=== PATIENT | male | born 1970 | race Caucasian/White ===

== ENCOUNTER 2023-04-23 07:34 | Emergency (ER) | payer BC, SELFPAY ==
[2023-04-23] VITALS (7 sets, daily range): BP systolic 146–182; BP diastolic 97–110; BMI 28.1
--- NOTE | 2023-04-23 08:23 | ED.GENMED ---
History of Present Illness
General
Chief Complaint: Chest Pain
Source: patient and spouse
Exam Limitations: none
Time Seen by Provider: 04/23/23 08:07
Nursing documentation reviewed up to this point in time: agreed with
Travel History
Have you had any contact with someone who has COVID-19?: No
Do you have any symptoms of coronavirus? Fever > 100 degrees, chills, cough, shortness of breath, sore throat, loss of taste or smell, muscle aches, or headache?: No
History of Present Illness
History of Present Illness:
52-year-old male with no chronic medical issues presents to the emergency room with his spouse for evaluation of chest discomfort, left arm and leg discomfort and high blood pressure. Patient reports that yesterday he started to feel slightly
unwell�he notes that when he was walking his dog yesterday he felt flushed and could hear 'my heart beating in my ears.' He says that he has had mildly elevated blood pressure for quite some time but has not been started on medication; he thought
that perhaps the symptoms could be due too high blood pressure and so he was checking his blood pressure throughout the evening and he noted that it was significantly elevated to the 180s systolic. He says that he went to bed and in the middle of
the night he noticed that he was starting to have some pressure in his chest that she describes a left-sided pressure that does not radiate and has been consistent since then although it seems to be generally improving. He says that he also noticed
a 'tightness' in his left arm and his left leg�'like an Jamin bandage wrapped around my arm and my thigh.' He says that the symptoms have been consistent since onset at around 2 to 3 AM. He denies any shortness of breath. He denies any nausea,
vomiting, diaphoresis. Denies any abdominal pain. No recent illness�no sore throat, runny nose, cough, fevers, chills. Has not noted any swelling in his leg. He denies any known cardiac history. He notes that he is quite active and is currently
training for half marathon runs about 6 miles a day. He denies ever having any exertional chest pains.
Past History
Past History
ED Past Medical History: GERD
ED Past Surgical History: Other (vasectomy)
Social History
Tobacco: Non-smoker
Alcohol: None
Drug: None
Personal:
Living: with family
Employment: Employed
Family History
Family History: CAD; Negative Early CAD or Sudden
Review of Systems
Review of Systems
All Other Systems: ROS reviewed and negative except as documented in HPI and ROS
Constitutional: Denies fever or chills
EENT: Denies sore throat or runny nose
Respiratory: Denies cough or trouble breathing
Cardiac: Reports chest pain; Denies diaphoresis or palpitations
ABD/GI: Denies abdominal pain, nausea, vomiting or diarrhea
: Denies flank pain
Musculoskeletal: Denies neck pain or back pain
Neurological: Denies dizzy, headache, weakness or numbness
Phy Exam
Physical Exam
Physical Exam:
General: Awake, alert, oriented x3; no acute distress
Head: Normocephalic, atraumatic
Eyes: Conjunctiva normal, sclera anicteric
Throat: Airway intact, handling secretions
Neck: Trachea midline, supple without meningismus
Lungs: Clear to auscultation bilaterally, no wheezing, rales, rhonchi
Heart: Regular rate and rhythm, no murmurs, gallops, or rubs
Abd: Soft, non distended, nontender
Neuro: Cranial nerves grossly intact, speech fluid
Skin: no rash
Extremities: No edema in extremities, equal pulses in all extremities�specifically he has strong, palpable, and symmetric radial pulses, femoral pulses, DP and PT pulses bilaterally
Scores
Heart Failure Risk
Heart Failure Risk Score: Not Applicable
Heart Score for Chest Pain Patients
STEMI patient?: No
History: Slightly or Non-Suspicious
ECG: Normal
Age: >45 - <65 years
Risk Factors: No Risk Factors
Troponin: </= Normal Limit
Heart Score for Chest Pain Patients: 1
Heart Score Risk: 2.5% MACE over next 6 weeks
PE Wells Score
Symptoms of DVT: Yes (Heaviness in the arm and the leg)
No alternative diagnosis better explains the illness: No
Tachycardia with pulse > 100: No
Immobilization (>=3 days) or surgery within previous 4 weeks: No
Prior history of DVT or pulmonary embolism: No
Presence of hemoptysis: No
Presence of malignancy: No
Pulmonary Embolism Risk Score: 0
Probability of PE: Pt is low risk
Withdrawal Assessment of Alcohol
Withdrawal Assessment Completed?: Not applicable
Course
Orders/Labs/Results
Orders:
Orders
04/23/23 07:39
Electrocardiogram (*1) Urgent
Reason for Study: Chest Pain
EKG- Treatment ONCE
04/23/23 08:03
CMP [Comprehensive Metabolic Panel] Urgent
Complete Blood Count/With Diff Urgent
Troponin I Urgent
04/23/23 08:07
CR Chest - 2 Views Urgent
Comment:
Reason For Exam: cp
04/23/23 08:16
D-Dimer Urgent
04/23/23 09:00
Vital Signs- Treatment ONCE
Frequency: Hourly
04/23/23 11:05
Troponin I Urgent
Abnormal Lab Results
04/23/23
08:03
Chloride 108 H mmol/L
(98-107)
04/23/23 08:03
04/23/23 08:03
Vital Signs
Blood pressure: 159/105
Initial and Last Documented VS:
Initial Vital Signs
Temp Pulse Resp BP Pulse Ox
36.6 C 73 18 181/110 98
04/23/23 07:36 04/23/23 07:36 04/23/23 07:36 04/23/23 07:36 04/23/23 07:36
Last Documented Vital Signs
Temp Pulse Resp BP Pulse Ox
36.6 C 60 16 151/105 96
04/23/23 07:36 04/23/23 12:00 04/23/23 12:00 04/23/23 12:00 04/23/23 12:00
MDM/Problems Addressed
Differential Diagnosis Includes:
ACS/acute IL, PE, pneumothorax, pneumonia, anxiety; aortic dissection a consideration with associated hypertension but considered much less likely given gradual onset and clinical appearance on exam today
MDM/Problems Addressed:
52-year-old male presents for evaluation of chest discomfort and left arm and leg tightness in the setting of hypertension since yesterday. He did arrive to his hypertensive 210/110, blood pressure improving by my assessment to 159/105. Vital
signs otherwise within normal limits. Physical exam as above. EKG reviewed shows no STEMI. History sounds very atypical for ACS�although there is some radiation/associated arm pain there is actually no exertional component and he is quite active
run 6 miles a day without exertional symptoms. Plan to place an IV check labs including CBC and CMP, troponin, D-dimer. Will check a chest x-ray. Will hold on additional antihypertensive therapy at present in favor of monitoring as it has dropped
significantly since triage. Monitor on telemetry reassess after the above.
Initial labs reviewed: CBC unremarkable, CMP shows no clinically significant abnormalities. D-dimer is negative. Troponin undetectable x 1�repeat pending. Chest x-ray reviewed by me shows no acute pathology. Continue to monitor pending repeat
troponin. Vitals have remained stable--blood pressure improved from triage but still lingering in the mildly hypertensive range.
Repeat troponin negative. Chest pain essentially resolved and patient very well-appearing. Blood pressure greatly improved but still mildly hypertensive 149 over 90s on my reassessment. It sounds like he has been in the 150s for quite some time
and despite exercise remains mildly hypertensive. Will start on a very low-dose antihypertensive here and have him follow-up with his primary doctor for reassessment. I think he is stable for discharge at this point in time can follow-up as an
outpatient as above. He feels very comfortable with this. Spoke about return precautions all questions answered.
Acute Exacerbation and/or Progression of Chronic Illness:
Acutely hypertensive managed as above
Acute Exacerbation and/or Progression of Chronic Illness: HTN
*Radiology
Radiology exam reviewed: preliminary read by ED provider and radiology read reviewed
*Pulse Oximetry
Patient hypoxic: no
*EKG
Interpreted by ED Provider?: Yes
Heart Rate: 64
Rate: normal
Rhythm: sinus
Ida: normal axis
Interval: normal interval
QRS Pattern: normal QRS
Ischemia: no ischemia
*Critical Care Note
Total Time (30-74mins, 75-104mins- exclusive of procedures): Not Applicable
Data Reviewed
Review of Other/Old Records Reveals: Labs and Records
Source: patient and spouse
ED Attending Note
-
Portions of this chart may have been created with voice recognition software.� Occasional wrong word or��sound alike� substitutions may have occurred due to the inherent limitations of voice recognition software.
Discharge Plan
Departure
Patient Disposition: Home (Routine Discharge)
Date of Disposition: 04/23/23
Time of Disposition: 12:23
Patient with high blood pressure during this ER visit?: Yes
Discharge Problem:
Hypertension, Chest pain
Instructions: Chest Pain PCP Follow Up
Prescriptions:
New
lisinopril 2.5 mg tablet
2.5 mg PO DAILY Qty: 30 0RF
Referrals:
Aureliano Pino MD [Family Provider] - Call in 1-3 days for appt
Activity Restrictions/Additional Instructions:
Thank you for visiting the Emergency Department at [facility].
1. Please schedule a follow up appointment as directed. Call first thing tomorrow morning to make an appointment.
2. If indicated, please take your medications as instructed and indicated on discharge paperwork.
3. If any of your symptoms do not improve, or persist, or become more severe within 6-12 hours, please return to the emergency department for further care.
4. Please return to the emergency department if you develop a headache, neck pain/stiffness, fever greater than 100.4F, chest pain, shortness of breath, persistent nausea, vomiting, slurred speech, difficulty walking, numbness/tingling, weakness,
signs of infection or any other symptoms that are worrisome to you.
Please call [phone] if you have any questions.
Interventions
Interventions:
*Risk Screen - Suicide Last Done: 04/23/23 07:36
*General Assessment Last Done: 04/23/23 07:36
*Neglect/Abuse Screening Last Done: 04/23/23 07:36
ED- Fall Risk Assessment Last Done: 04/23/23 08:00
*ED COVID-19 Vaccine History Last Done: 04/23/23 08:00
ED- Cardiac Assessment Last Done: 04/23/23 08:07
[2023-04-23 08:26] LABS: % Eosinophils 1.9 % (0-6); % Immature Granulocytes 0.2 % (0-0.5); % Lymphocytes 27.9 % (20.5-51.1); % Monocytes 7.6 % (1.7-9.3); % Neutrophils 61.4 % (42.2-75.2); Absolute Basophils 0.1 10^3/uL (0-0.2); Absolute Eosinophils 0.1 10^3/uL (0-0.7); Absolute Lymphocytes 1.4 10^3/uL (1.2-3.4); Absolute Monocytes 0.4 10^3/uL (0.1-0.6); Absolute Neutrophils 3.2 10^3/uL (1.4-6.5); Hematocrit 45.4 % (39.0-52.0); Hemoglobin 15.9 g/dL (13.0-18.0); Mean Corpuscular Hgb 28.1 pg (27.0-31.0); Mean Corpuscular Volume 80.4 fL (80.0-94.0); Mean Platelet Volume 9.3 fL (7.4-10.4); Nucleated Red Blood Cells % 0 % (-); Platelet Count 276 10^3/uL (130-400); Red Blood Cell Count 5.65 10^6/uL (4.70-6.10); Red Cell Dist. Width 13.3 % (11.5-14.5); White Blood Cell Count 5.2 10^3/uL (4.8-10.8)
[2023-04-23 08:38] LABS: ALT (SGPT) 35 U/L (0-50); AST (SGOT) 36 U/L (17-59); Albumin 4.3 g/dl (3.5-5.0); Alkaline Phosphatase 73 U/L (38-126); Blood Urea Nitrogen 17 mg/dl (9-20); Calcium 9.2 mg/dl (8.4-10.2); Carbon Dioxide 23 mmol/L (22-30); Chloride 108 mmol/L (98-107); Estimated Creatinine Clearance 120 ml/min; Glucose 99 mg/dl (70-99); Sodium 138 mmol/L (135-145); Total Protein 7.1 g/dl (6.3-8.2); eGFR > 60.00
[2023-04-23 08:49] LABS: Troponin I < 0.012 ng/ml
[2023-04-23 08:50] LABS: Potassium 4.2 mmol/L (3.5-5.1)
[2023-04-23 08:58] LABS: D-Dimer 0.28 ug/mlFEU (0.00-0.50)
[2023-04-23 11:41] LABS: Troponin I < 0.012 ng/ml
== END 2023-04-23 13:00 | disposition home or self-care (01) ==
LOC: EMR 07:34
PROVIDERS: EMERGENCY PHYSICIAN Emergency Medicine; FAMILY PHYSICIAN Family Medicine
DX: R07.89 Other chest pain (principal); I10 Essential (primary) hypertension
CPT/HCPCS: 99285; 71046; 80053; 84484; 85025; 85379; 93005

== ENCOUNTER → 2023-11-01 14:43 | Outpatient (REF) | payer BC, SELFPAY | LOC: RAD 14:43 | PROVIDERS: ATTENDING PHYSICIAN Physician Assistant Surgical; FAMILY PHYSICIAN Family Medicine | DX: M79.662 Pain in left lower leg (principal); M84.362D Stress fracture, left tibia, subsequent encounter for fracture with routine healing | CPT/HCPCS: 93971 ==

== ENCOUNTER 2023-11-01 16:09 | Emergency (ER) | payer BC, SELFPAY ==
[2023-11-01 16:10] VITALS: BP 142/102
--- NOTE | 2023-11-01 17:20 | ED.GENMED ---
History of Present Illness
General
Chief Complaint: DVT/Possible Blood Clot
Source: patient and spouse
Exam Limitations: none
Time Seen by Provider: 11/01/23 17:08
Nursing documentation reviewed up to this point in time: agreed with
History of Present Illness
History of Present Illness:
52-year-old male with a past medical history of hypertension presents to the emergency room from outpatient radiology due to a DVT. Patient reports that he had a stress fracture in his left leg after a marathon in June. He was treated at [place]
[facility] orthopedics with Ortho boot left lower extremity x 3 weeks; this was removed in early July. He says that since the boot came off he has had consistent swelling in the left leg and pain despite signs of well-healing fracture on repeat MRI.
Ultimately orthopedist sent for an ultrasound to rule out DVT today which was positive. He denies any chest pain or shortness of breath. He denies any other complaints. Denies any known history of DVT/PE or known family history of such. He
denies being on any blood thinners, only medications are blood pressure medications.
Past History
Past History
ED Past Medical History: GERD
ED Past Surgical History: Other (vasectomy)
Social History
Tobacco: Non-smoker
Alcohol: None
Drug: None
Personal:
Living: with family
Employment: Employed
Family History
Family History: CAD; Negative Early CAD or Sudden
Review of Systems
Review of Systems
All Other Systems: ROS reviewed and negative except as documented in HPI and ROS
Constitutional: Denies fever
Respiratory: Denies trouble breathing
Cardiac: Denies chest pain
: Denies bleeding
Musculoskeletal: Reports muscle pain and edema
Neurological: Denies headache
Phy Exam
Physical Exam
Physical Exam:
General: Awake, alert, oriented x3; no acute distress
Head: Normocephalic, atraumatic
Eyes: Conjunctiva normal
Throat: Airway intact, handling secretions
Neck: Trachea midline
Lungs: Clear to auscultation bilaterally, no wheezing, rales, rhonchi
Heart: Regular rate and rhythm, no murmurs, gallops, or rubs
Neuro: No gross deficits
Skin: no rash, no erythema or discoloration of the left lower extremity
Extremities: Patient has +1 edema left lower extremity compared to right; no significant discoloration to left lower extremity; mild calf tenderness on the left but no palpable cords; he has good strong pulses femoral, popliteal, DP/PT left lower
extremity
Scores
Heart Failure Risk
Heart Failure Risk Score: Not Applicable
Heart Score for Chest Pain Patients
STEMI patient?: Not applicable
Withdrawal Assessment of Alcohol
Withdrawal Assessment Completed?: Not applicable
Course
Orders/Labs/Results
Orders:
Orders
11/01/23 17:08
Complete Blood Count/With Diff Urgent
Comprehensive Metabolic Panel Urgent
Vital Signs
Initial and Last Documented VS:
Initial Vital Signs
Temp Pulse Resp BP Pulse Ox
36.7 C 64 18 142/102 97
11/01/23 16:10 11/01/23 16:10 11/01/23 16:10 11/01/23 16:10 11/01/23 16:10
Last Documented Vital Signs
Temp Pulse Resp BP Pulse Ox
36.7 C 64 18 142/102 97
11/01/23 16:10 11/01/23 16:10 11/01/23 16:10 11/01/23 16:10 11/01/23 16:10
MDM/Problems Addressed
Differential Diagnosis Includes:
DVT
MDM/Problems Addressed:
52-year-old male presents for evaluation of DVT on outpatient ultrasound�likely triggered by immobilization for stress fracture in June/July. Denies any chest pain or shortness of breath�no symptoms of PE. Vital signs are normal. Ultrasound
reviewed�shows occlusive DVT proximal to mid femoral vein with nonocclusive thrombus in the distal femoral vein. Will check basic screening labs CBC and CMP. Discussed case with vascular surgery regarding possibility of thrombectomy or lysis�based
on extent of clot no indication for these interventions at this point in time. Recommended initiating anticoagulation, can follow-up as an outpatient.
*Radiology
Radiology exam reviewed: radiology read reviewed
*Pulse Oximetry
Patient hypoxic: no
*Critical Care Note
Total Time (30-74mins, 75-104mins- exclusive of procedures): Not Applicable
Data Reviewed
Source: patient and spouse
ED Attending Note
-
Portions of this chart may have been created with voice recognition software.� Occasional wrong word or��sound alike� substitutions may have occurred due to the inherent limitations of voice recognition software.
Discharge Plan
Departure
Prescriptions:
No Action
lisinopril 2.5 mg tablet
2.5 mg PO DAILY Qty: 30 0RF
Referrals:
Aureliano Pino MD [Family Provider] -
Interventions
Interventions:
*Risk Screen - Suicide Last Done: 11/01/23 16:10
*General Assessment Last Done: 11/01/23 16:10
*Neglect/Abuse Screening Last Done: 11/01/23 16:10
Discharge Date and Time
Print Language: MONGOLIAN
--- NOTE | 2023-11-01 17:36 | CM ---
CM spoke with patient's pharmacy and confirmed Eliquis is covered at $30. CM updated ED physician.
[2023-11-01 17:50] LABS: % Basophils 1.1 % (0-2); % Eosinophils 1.4 % (0-6); % Immature Granulocytes 0.3 % (0-0.5); % Lymphocytes 29.2 % (20.5-51.1); % Monocytes 8.7 % (1.7-9.3); % Neutrophils 59.3 % (42.2-75.2); Absolute Basophils 0.1 10^3/uL (0-0.2); Absolute Eosinophils 0.1 10^3/uL (0-0.7); Absolute Lymphocytes 1.9 10^3/uL (1.2-3.4); Absolute Monocytes 0.6 10^3/uL (0.1-0.6); Hematocrit 42.5 % (39.0-52.0); Hemoglobin 14.9 g/dL (13.0-18.0); Mean Corp Hgb Conc. 35.1 g/dL (33.0-37.0); Mean Corpuscular Hgb 28.4 pg (27.0-31.0); Mean Corpuscular Volume 81.1 fL (80.0-94.0); Nucleated Red Blood Cells % 0 % (-); Platelet Count 251 10^3/uL (130-400); Red Blood Cell Count 5.24 10^6/uL (4.70-6.10); Red Cell Dist. Width 13.2 % (11.5-14.5); White Blood Cell Count 6.7 10^3/uL (4.8-10.8)
[2023-11-01] MEDS: ELIQUIS 10 MG PO (17:57)
[2023-11-01 18:05] LABS: ALT (SGPT) 41 U/L (0-50); AST (SGOT) 32 U/L (17-59); Albumin 4.5 g/dl (3.5-5.0); Alkaline Phosphatase 54 U/L (38-126); Blood Urea Nitrogen 15 mg/dl (9-20); Calcium 9.6 mg/dl (8.4-10.2); Carbon Dioxide 24 mmol/L (22-30); Chloride 103 mmol/L (98-107); Glucose 95 mg/dl (70-99); Potassium 4.1 mmol/L (3.5-5.1); Sodium 141 mmol/L (135-145); Total Bilirubin 0.6 mg/dl (0.2-1.3); Total Protein 7.3 g/dl (6.3-8.2); eGFR > 60.00
== END 2023-11-01 18:00 | disposition home or self-care (01) ==
LOC: EMR 16:09
PROVIDERS: EMERGENCY PHYSICIAN Emergency Medicine; FAMILY PHYSICIAN Family Medicine
DX: I82.412 Acute embolism and thrombosis of left femoral vein (principal); K21.9 Gastro-esophageal reflux disease without esophagitis; Z88.0 Allergy status to penicillin; Z91.018 Allergy to other foods
CPT/HCPCS: 99283; 80053; 85025; 93971

== ENCOUNTER → 2024-04-13 08:53 | Outpatient (REF) | payer BC, SELFPAY | LOC: HWRAD 08:53 | PROVIDERS: ATTENDING PHYSICIAN Family Medicine; REFERRING PHYSICIAN Specialist | DX: M84.362G Stress fracture, left tibia, subsequent encounter for fracture with delayed healing (principal); M84.361G Stress fracture, right tibia, subsequent encounter for fracture with delayed healing; M80.00XG Age-related osteoporosis with current pathological fracture, unspecified site, subsequent encounter for fracture with delayed healing | CPT/HCPCS: 77080 ==

== ENCOUNTER 2024-04-28 06:14 | Day surgery (SDC) | payer BC, SELFPAY ==
[2024-04-14 14:08] VITALS: BMI 29.4
[2024-04-28] VITALS (8 sets, daily range): BP systolic 132–149; BP diastolic 82–99; BMI 29.4
[2024-04-28] MEDS: TYLENOL 1000 MG PO (13:39)
[2024-04-28] MEDS: CELEBREX 200 MG PO (13:39)
[2024-04-28] MEDS: NORMOSOL-R/PLASMALYTE-A 1000 IV (13:39)
[2024-04-28] MEDS: TRANSDERM-SCOP 1 PATCH TRANSDERM (15:04)
== END 2024-04-28 18:37 | disposition home or self-care (01) ==
LOC: SDS 06:14
PROVIDERS: ATTENDING PHYSICIAN Specialist; FAMILY PHYSICIAN Family Medicine
DX: S83.232A Complex tear of medial meniscus, current injury, left knee, initial encounter (principal); X58.XXXA Exposure to other specified factors, initial encounter; M84.362A Stress fracture, left tibia, initial encounter for fracture; M22.42 Chondromalacia patellae, left knee
CPT/HCPCS: 0707T; 29881; C1713; 36415; 73560; 76000; 93005

== ENCOUNTER 2024-05-03 09:40 | Emergency (ER) | payer BC, SELFPAY ==
[2024-05-03 09:42] VITALS: BP 141/104
[2024-05-03 10:21] LABS: COVID-19 Antigen Positive (Negative)
--- NOTE | 2024-05-03 10:55 | ED.GENMED ---
History of Present Illness
General
Chief Complaint: Cold/Flu/URI Symptoms
Time Seen by Provider: 05/03/24 10:11
History of Present Illness
History of Present Illness:
53-year-old male presents the emergency department for evaluation legs, cough, and sore throat for the past 2 days. He is 5 days status post left meniscectomy performed by [facility] orthopedics. Low-grade fever this morning. No ill contacts at
home.
Past History
Past History
ED Past Medical History: GERD
ED Past Surgical History: Other (vasectomy)
Social History
Tobacco: Non-smoker
Alcohol: None
Drug: None
Personal:
Living: with family
Employment: Employed
Family History
Family History: CAD; Negative Early CAD or Sudden
Review of Systems
Review of Systems
Allergies reviewed?: Yes
All Other Systems: ROS reviewed and negative except as documented in HPI and ROS
Phy Exam
Physical Exam
Physical Exam:
GEN: Well appearing, NAD, WDWN
HEENT: Oral mucosa moist, no scleral icterus, TMs clear bilaterally, mild oropharyngeal erythema
Cardiac: Regular rate and rhythm, no murmurs
Lung: No respiratory distress, no tachypnea, lungs clear to auscultation bilaterally
MSK: No gross deformity or injuries
Skin: Good color, no pallor or jaundice, no rashes
Neuro: AO x3, moves all extremities freely
Psych: Calm, cooperative
Course
Orders/Labs/Results
Orders:
Orders
05/03/24 09:47
COVID-19 Antigen Urgent
Source: Nasal Swab
Influenza A+B Rapid Molecular Urgent
ROSALIE Source: Nasal Swab
Specimen Description:
Abnormal Lab Results
05/03/24
09:47
SARS-CoV-2 Antigen Positive A
(Negative)
Vital Signs
Initial and Last Documented VS:
Initial Vital Signs
Temp Pulse Resp BP Pulse Ox
99.9 F 103 20 141/104 98
05/03/24 09:42 05/03/24 09:42 05/03/24 09:42 05/03/24 09:42 05/03/24 09:42
Last Documented Vital Signs
Temp Pulse Resp BP Pulse Ox
99.9 F 103 20 141/104 98
05/03/24 09:42 05/03/24 09:42 05/03/24 09:42 05/03/24 09:42 05/03/24 09:42
MDM/Problems Addressed
MDM/Problems Addressed:
Patient positive for COVID-19, discussed supportive care, patient is interested in antiviral therapy which is reasonable given his history of hypertension
*Critical Care Note
Total Time (30-74mins, 75-104mins- exclusive of procedures): Not Applicable
ED Attending Note
-
Portions of this chart may have been created with voice recognition software.� Occasional wrong word or��sound alike� substitutions may have occurred due to the inherent limitations of voice recognition software.
Discharge Plan
Departure
Patient Disposition: Home (Routine Discharge)
Date of Disposition: 05/03/24
Time of Disposition: 10:55
Patient with high blood pressure during this ER visit?: Yes
Discharge Problem:
COVID-19
Instructions: COVID-19 - ED discharge instructions
Prescriptions:
New
Paxlovid 300 mg (150 mg x 2)-100 mg tablets,dose pack
See Rx Instructions .ROUTE .COMPLEX Qty: 30 0RF
Rx Instructions:
take TWO 150 mg tablets of nirmatrelvir with ONE 100 mg tablet of ritonavir twice daily for 5 days
No Action
lisinopril 20 mg tablet
20 mg PO HS
amlodipine 5 mg tablet
5 mg PO HS
Referrals:
Aureliano Pino MD [Family Provider] -
Interventions
Interventions:
*Risk Screen - Suicide Last Done: 05/03/24 09:42
*General Assessment Last Done: 05/03/24 09:42
*Neglect/Abuse Screening Last Done: 05/03/24 11:06
*ED- Fall Risk Assessment Last Done: 05/03/24 11:06
*ED COVID-19 Vaccine History Last Done: 05/03/24 11:06
*Nursing Disposition Last Done: 05/03/24 11:06
ED- Pulmonary Assessment Last Done: 05/03/24 10:30
Discharge Date and Time
Discharge Date/Time: 05/03/24 11:07
Print Language: QATARI
== END 2024-05-03 11:07 | disposition home or self-care (01) ==
LOC: EMR 09:40
PROVIDERS: EMERGENCY PHYSICIAN Emergency Medicine; FAMILY PHYSICIAN Family Medicine; REFERRING PHYSICIAN Specialist
DX: U07.1 COVID-19 (principal); Z11.52 Encounter for screening for COVID-19; I10 Essential (primary) hypertension; K21.9 Gastro-esophageal reflux disease without esophagitis; Z98.890 Other specified postprocedural states; Z88.0 Allergy status to penicillin; Z91.018 Allergy to other foods; Z91.010 Allergy to peanuts
CPT/HCPCS: 99283; 87502; 87811

== ENCOUNTER → 2024-09-16 12:07 | Outpatient (REF) | payer BC, SELFPAY | LOC: RCS 12:07 | PROVIDERS: ATTENDING PHYSICIAN Specialist; FAMILY PHYSICIAN Family Medicine | DX: Z01.818 Encounter for other preprocedural examination (principal) | CPT/HCPCS: 93005 ==

== ENCOUNTER → 2024-12-25 06:43 | Outpatient (REF) | payer BC, SELFPAY | LOC: RAD 06:43 | PROVIDERS: ATTENDING PHYSICIAN Physician Assistant; FAMILY PHYSICIAN Family Medicine | DX: D35.01 Benign neoplasm of right adrenal gland (principal) | CPT/HCPCS: 74170; Q9967 ==

== ENCOUNTER 2025-01-28 06:27 | Day surgery (SDC) | payer BC, SELFPAY ==
[2025-01-22 11:33] LABS: Hematocrit 44.2 % (39.0-52.0); Hemoglobin 15.1 g/dL (13.0-18.0); Mean Corp Hgb Conc. 34.2 g/dL (33.0-37.0); Mean Corpuscular Volume 80.5 fL (80.0-94.0); Platelet Count 262 10^3/uL (130-400); Red Cell Dist. Width 13.1 % (11.5-14.5)
[2025-01-22 12:09] LABS: Blood Urea Nitrogen 12 mg/dl (9-20); Calcium 9.3 mg/dl (8.4-10.2); Carbon Dioxide 29 mmol/L (22-30); Chloride 102 mmol/L (98-107); Estimated Creatinine Clearance 104 ml/min; Glucose 79 mg/dl (70-99); Potassium 4.7 mmol/L (3.5-5.1); Sodium 137 mmol/L (135-145); eGFR > 60.00
[2025-01-28] VITALS (19 sets, daily range): BP systolic 109–138; BP diastolic 67–93
[2025-01-28] MEDS: NORMOSOL-R/PLASMALYTE-A 1000 IV (14:11)
[2025-01-28] MEDS: NSS 1000 IV (19:39)
[2025-01-29] MEDS: NSS 1000 IV (02:47)
[2025-01-29 03:00] VITALS: BP 112/76
[2025-01-29 06:00] VITALS: BMI 29.9
[2025-01-29 07:30] VITALS: BP 135/75
[2025-01-29 07:55] LABS: Blood Urea Nitrogen 13 mg/dl (9-20); Calcium 8.7 mg/dl (8.4-10.2); Carbon Dioxide 24 mmol/L (22-30); Chloride 106 mmol/L (98-107); Estimated Creatinine Clearance 104 ml/min; Glucose 117 mg/dl (70-99); Potassium 4.7 mmol/L (3.5-5.1); Sodium 134 mmol/L (135-145); eGFR > 60.00
[2025-01-29 08:10] LABS: Hematocrit 41.7 % (39.0-52.0); Hemoglobin 14.4 g/dL (13.0-18.0); Mean Corp Hgb Conc. 34.5 g/dL (33.0-37.0); Mean Corpuscular Volume 80.2 fL (80.0-94.0); Platelet Count 255 10^3/uL (130-400); Red Cell Dist. Width 13.0 % (11.5-14.5)
--- NOTE | 2025-01-29 08:14 | W.PN.URO.CBU ---
Today's Communication / Plan
-
Discharge with nickerson
Assessment / Plan
-
54M s/p TURP
complicated by posterior bladder neck false passage
- Discharge home with nickerson in place for 4 days to allow healing of small posterior bladder neck separation
- TOV on Saturday
- Cap CBI port
Diagnosis
-
Date of Service: January 29, 2025
-
Patient Diagnosis:
BPH
Post Op Day: s/p TURP
Subjective
-
no problems overnight
pain controlled
Objective
-
Vital Signs
Temp Pulse Resp BP Pulse Ox
98.2 F 73 18 112/76 97
01/29/25 03:00 01/29/25 03:00 01/29/25 03:00 01/29/25 03:00 01/29/25 03:00
Intake and Output
01/28/25 01/29/25 01/30/25
06:59 06:59 06:59
Intake Total 1590 / 1590
Output Total 650 / 650
Balance 940 / 940
Intake:
Oral fluids 240 / 240
IV fluids (Total) 1350 / 1350
Output:
True Urine Output from CBI 650 / 650
Laboratory Results
01/29/25 07:00
01/29/25 07:00
Physical Exam
-
General - well developed, well nourished, no acute distress
Chest - clear bilaterally
nickerson light pink off CBI
--- NOTE | 2025-01-29 10:40 | CM ---
Patient was admitted for TURP and plan is for discharge today, patient has an appointment in office per notes. Patient lives with spouse in a 2 story home, patient is independent with adl's and ambulation, no dme, patient drives.
PCP: Aureliano Pino
Pharmacy: [facility] in [place]
Plan; Home today no needs.
[2025-01-29 11:05] VITALS: BP 141/75
== END 2025-01-29 11:10 | disposition home or self-care (01) ==
LOC: SDS 06:27
PROVIDERS: ATTENDING PHYSICIAN Urology; FAMILY PHYSICIAN Family Medicine
DX: N40.1 Benign prostatic hyperplasia with lower urinary tract symptoms (principal); N13.8 Other obstructive and reflux uropathy
CPT/HCPCS: 52601; 36415; 80048; 85027; 88305; C1769

== ENCOUNTER 2025-02-01 20:06 | Emergency (ER) | payer BC, SELFPAY ==
[2025-02-01 20:11] VITALS: BP 182/124
[2025-02-01 20:29] LABS: Hematocrit 46.1 % (39.0-52.0); Hemoglobin 16.1 g/dL (13.0-18.0); Mean Corp Hgb Conc. 34.9 g/dL (33.0-37.0); Mean Corpuscular Volume 80.9 fL (80.0-94.0); Nucleated Red Blood Cells % 0 % (-); Platelet Count 285 10^3/uL (130-400); Red Cell Dist. Width 13.0 % (11.5-14.5)
[2025-02-01 20:38] VITALS: BP 150/101
[2025-02-01 20:52] LABS: ALT (SGPT) 29 U/L (0-50); AST (SGOT) 21 U/L (17-59); Albumin 4.8 g/dl (3.5-5.0); Alkaline Phosphatase 69 U/L (38-126); Blood Urea Nitrogen 15 mg/dl (9-20); Calcium 10.0 mg/dl (8.4-10.2); Carbon Dioxide 30 mmol/L (22-30); Chloride 98 mmol/L (98-107); Glucose 101 mg/dl (70-99); Potassium 4.5 mmol/L (3.5-5.1); Sodium 135 mmol/L (135-145); Total Protein 8.2 g/dl (6.3-8.2); eGFR > 60.00
[2025-02-01 21:00] VITALS: BP 156/101
--- NOTE | 2025-02-01 21:58 | ED.GENMED ---
History of Present Illness
General
Chief Complaint: Male Genito-Urinary Symptoms
Source: patient
Exam Limitations: none
Time Seen by Provider: 02/01/25 21:00
Nursing documentation reviewed up to this point in time: agreed with
History of Present Illness
History of Present Illness:
54-year-old male presents Emergency Department after no urine output for the past 6 hours. He had his Corey catheter removed by urology at 9:30 AM. He has not been able to urinate. He had a TURP on 01/28/2025.
Past History
Past History
ED Past Medical History: GERD
ED Past Surgical History: Urological (TURP) and Other (vasectomy)
Social History
Tobacco: Non-smoker
Alcohol: None
Drug: None
Personal:
Living: with family
Employment: Employed
Family History
Family History: CAD; Negative Early CAD or Sudden
Review of Systems
Review of Systems
Allergies reviewed?: Yes
All Other Systems: Not applicable
Constitutional: Reports no symptoms
EENT: Reports no symptoms
Respiratory: Reports no symptoms
Cardiac: Reports no symptoms
ABD/GI: Reports no symptoms
: Reports difficulty voiding
Musculoskeletal: Reports no symptoms
Skin: Reports no symptoms
Neurological: Reports no symptoms
Endocrine: Reports no symptoms
Hematologic/Lymphatic: Reports no symptoms
Psychiatric: Reports no symptoms
Phy Exam
Physical Exam
Physical Exam:
Physical Exam
General: no apparent distress, not acutely ill
Neck: supple. no meningeal signs. normal posterior pharynx
Heart: No edema
HEENT: Pupils equal round reactive to light, EOMI
Lungs: no acute respiratory distress. clear bilaterally
Abdomen: normal bowel sounds. not tender. no CVAT, bladder distended:
Neuro: alert and oriented. no focal neurological deficits
Skin: no rash
Psychiatric: well kept. interactive and cooperative
Extremities: no calf tenderness. negative homans. good distal pulses
Course
Orders/Labs/Results
Orders:
Orders
02/01/25 20:14
Urinalysis Reflex To Culture Urgent
Date Specimen was Collected: 02/01/25
Time Specimen was Collected: 20:15
02/01/25 20:22
CBC/With Diff [Complete Blood Count/With Diff] Urgent
Comprehensive Metabolic Panel Urgent
Abnormal Lab Results
02/01/25
20:22
Abs Immat Gran (auto) 0.1 H 10^3/uL
(0-0.05)
Absolute Monos (auto) 0.7 H 10^3/uL
(0.1-0.6)
Immature Gran % 0.7 H %
(0-0.5)
Glucose 101 H mg/dl
(70-99)
02/01/25 20:22
02/01/25 20:22
Vital Signs
Initial and Last Documented VS:
Initial Vital Signs
Temp Pulse Resp BP Pulse Ox
97.6 F 93 16 182/124 100
02/01/25 20:11 02/01/25 20:11 02/01/25 20:11 02/01/25 20:11 02/01/25 20:11
Last Documented Vital Signs
Temp Pulse Resp BP Pulse Ox
97.6 F 93 16 182/124 100
02/01/25 20:11 02/01/25 20:11 02/01/25 20:11 02/01/25 20:11 02/01/25 20:11
MDM/Problems Addressed
Differential Diagnosis Includes:
Urinary retention, UTI
MDM/Problems Addressed:
54-year-old male with urinary retention status post TURP. Stable for discharge with Corey catheter in place. Follow-up with urology.
Chronic conditions affecting care: Other (TURP)
*Pulse Oximetry
SaO2: 100
Oxygen Mode of Delivery: Room air
Patient hypoxic: no
*Critical Care Note
Total Time (30-74mins, 75-104mins- exclusive of procedures): Not Applicable
ED Attending Note
-
Portions of this chart may have been created with voice recognition software.� Occasional wrong word or��sound alike� substitutions may have occurred due to the inherent limitations of voice recognition software.
Discharge Plan
Departure
Patient Disposition: Home (Routine Discharge)
Date of Disposition: 02/01/25
Time of Disposition: 22:09
Patient with high blood pressure during this ER visit?: Yes
Discharge Problem:
Acute urinary retention
Instructions: Urinary Retention (DC), How to Care for Your Corey Catheter, Male, BLOOD PRESSURE
Prescriptions:
No Action
lisinopril 20 mg tablet
20 mg PO HS
amlodipine 5 mg tablet
5 mg PO HS
Sudafed
1 tab PO HS
tolterodine 4 mg Capsule,Extended Release 24hr
4 mg PO DAILYPRN PRN (Reason: bladder spasms) Qty: 30 0RF
Referrals:
Aureliano Pino MD [Family Provider, Family Practice]
Kelvin Souza MD [Active, Urology] - Call in 1-3 days for appt
Interventions
Interventions:
*Risk Screen - Suicide Last Done: 02/01/25 20:11
Discharge Date and Time
Print Language: [id number]
[2025-02-01 22:00] VITALS: BP 148/102
[2025-02-01 22:09] VITALS: BMI 30.9
[2025-02-01 22:27] LABS: Urine Character Slightly Cloudy (Clear)
[2025-02-01 22:54] LABS: Urine Red Blood Cell >100 /HPF (0-2); Urine Squamous Cell 0-2 /LPF (Few)
[2025-02-01 23:00] VITALS: BP 152/91
== END 2025-02-01 23:12 | disposition home or self-care (01) ==
LOC: EMR 20:06
PROVIDERS: Emergency Medicine; EMERGENCY PHYSICIAN Emergency Medicine; FAMILY PHYSICIAN Family Medicine
DX: R33.9 Retention of urine, unspecified (principal); R03.0 Elevated blood-pressure reading, without diagnosis of hypertension; Z90.79 Acquired absence of other genital organ(s)
CPT/HCPCS: 99283; 51702; 80053; 81003; 81015; 85025; 87086

== ENCOUNTER 2025-02-05 22:46 | Inpatient (IN) | payer BC, SELFPAY ==
[2025-02-05 14:41] VITALS: BP 120/84
[2025-02-05 15:09] LABS: Hematocrit 43.0 % (39.0-52.0); Hemoglobin 14.8 g/dL (13.0-18.0); Mean Corp Hgb Conc. 34.4 g/dL (33.0-37.0); Mean Corpuscular Volume 79.5 fL (80.0-94.0); Nucleated Red Blood Cells % 0 % (-); Platelet Count 273 10^3/uL (130-400); Red Cell Dist. Width 13.0 % (11.5-14.5)
[2025-02-05 15:17] LABS: INR 1.01; PT 13.4 Sec (11.4-14.6)
[2025-02-05 15:22] LABS: ALT (SGPT) 24 U/L (0-50); AST (SGOT) 18 U/L (17-59); Albumin 4.3 g/dl (3.5-5.0); Alkaline Phosphatase 67 U/L (38-126); Blood Urea Nitrogen 15 mg/dl (9-20); Calcium 9.3 mg/dl (8.4-10.2); Carbon Dioxide 23 mmol/L (22-30); Chloride 101 mmol/L (98-107); Glucose 124 mg/dl (70-99); Potassium 4.4 mmol/L (3.5-5.1); Sodium 135 mmol/L (135-145); Total Protein 7.3 g/dl (6.3-8.2); eGFR > 60.00
--- NOTE | 2025-02-05 17:44 | ED.GENMED ---
History of Present Illness
<Staci Tellez NP - Last Filed: 02/05/25 23:34>
General
Chief Complaint: Breathing Problem
Source: patient and spouse
Exam Limitations: none
Time Seen by Provider: 02/05/25 17:13
Nursing documentation reviewed up to this point in time: agreed with
History of Present Illness
History of Present Illness:
Patient is emergency department with complaint of severe left-sided chest pain. Symptoms started yesterday. He states it hurts to take deep breath, cough. Patient and spouse are concerned for pulmonary embolism. He has a history of a prior DVT
which was diagnosed 07/2023. At that time he was being treated for an orthopedic issue. He was placed in an orthopedic boot for an extended period of time and then developed the DVT. He was placed on Eliquis, completed treatment in 01/2024. No
issues since. He reports having a TURP completed on 01/28. states he has been sedentary since procedure. He reports chronic pain to his left lower extremity since having the DVT. He denies any change in this pain, no change in swelling.
Brought to ED by spouse for evaluation.
Past History
<Staci Tellez NP - Last Filed: 02/05/25 23:34>
Past History
ED Past Medical History: GERD, HTN and Other (DVT 07/2023)
ED Past Surgical History: Urological (TURP) and Other (vasectomy)
Social History
Tobacco: Non-smoker
Alcohol: None
Drug: None
Personal:
Living: with family
Employment: Employed
Family History
Family History: CAD; Negative Early CAD or Sudden
Review of Systems
<Staci Tellez RD MANAGER - Last Filed: 02/05/25 23:34>
Review of Systems
Allergies reviewed?: Yes
All Other Systems: ROS reviewed and negative except as documented in HPI and ROS
Constitutional: Reports no symptoms
EENT: Reports no symptoms
Respiratory: Reports cough and trouble breathing
Cardiac: Reports chest pain (Severe left-sided chest pain)
ABD/GI: Reports no symptoms
: Reports no symptoms
Musculoskeletal: Reports no symptoms
Skin: Reports no symptoms
Neurological: Reports weakness
Psychiatric: Reports no symptoms
Phy Exam
<Staci Tellez RD MANAGER - Last Filed: 02/05/25 23:34>
General Physical Exam
General Presentation: moderate distress
General age: appears stated age
General Skin: warm and dry
General Habitus: normal
General Mental: alert
Cardiovascular Exam
Cardiovascular Exam: regular rate/rhythm and no edema
Pulmonary Exam
Pulmonary Exam: decreased breath sounds (Decreased breath sounds left lower lobe)
Gastrointestinal Exam
Gastrointestinal Exam: normal bowel sounds, non tender and soft
Musculoskeletal Exam
Musculoskeletal Exam: full ROM and neuro vasc intact
Skin Exam
Skin Exam: normal color, warm/dry and no rash
Psychiatric Exam
Psychiatric Exam: normal mood/affect
Scores
<Staci Tellez RD MANAGER - Last Filed: 02/05/25 23:34>
Heart Failure Risk
Heart Failure Risk Score: Not Applicable
Course
<Staci Tellez RD MANAGER - Last Filed: 02/05/25 23:34>
Orders/Labs/Results
Orders:
Orders
02/05/25 14:44
Electrocardiogram (*1) Urgent
Reason for Study: Chest Pain
EKG- Treatment ONCE
02/05/25 14:53
Complete Blood Count/With Diff Urgent
Comprehensive Metabolic Panel Urgent
Prothrombin Time Urgent
02/05/25 17:40
0.9% Sodium Chloride 1000 ml [Nss] 1,000 ml IV BOLUS
Acetaminophen [Tylenol] 1,000 mg PO NOW STA
02/05/25 17:41
CT Chest PE Study Urgent
Comment:
Reason For Exam: left chest pain, SOB, hx PE
02/05/25 17:43
Docusate Sodium [Colace] 100 mg PO NOW STA
Polyethylene Glycol Powder [Miralax] 17 grams PO NOW STA
02/05/25 20:43
HYDROmorphone [Dilaudid] 0.5 mg IV NOW STA
02/05/25 21:01
Heparin 7,200 units IV NOW STA
Nursing to Place Non Medication Order As Directed
Physician Order: PTT 6 hours after initial start of Heparin infusion
Above order entered?: Yes
02/05/25 21:11
PTT Urgent
Comment: Obtain baseline before beginning heparin infusion if not already collected
02/05/25 21:15
PULMONARY CONSULT Urgent
Consulting Provider: Sameer Paredes
Was physician already notified: Yes
Heparin 62086 Units/250 ml 25,000 units in 250 ml IV PER PROTOCOL
Weight to be used for heparin protocol in kilograms (kg):: 90.2
Protocol:: DVT/PE
PTT Goal Range to be used:: PTT 73 to 111 seconds
Order type:: Initial
INITIAL Infusion Dose (UNITS/KG/hr) & then follow protocol:: 18 units/kg/hr
Infusion Dose in UNITS/hr & then follow protocol (UNITS/hr):: 1,600
INFUSION RATE in mL/hr & then follow protocol (mL/hr):: 16
For DVT/PE algorithm, re-bolus for low PTT?: Yes
PTT less than or equal to 64 seconds:: Re-bolus 80 units/kg (max 10,000units). Increase by 400 units/hr
(+ 4mL/hr)
PTT 64.1 to 72.9 seconds:: Re-bolus 40 units/kg (max 5,000 units). Increase by 200 units/hr
(+ 2mL/hr)
PTT 73 to 111 seconds:: Target Range. No change in rate.
PTT 111.1 to 130.9 seconds:: Decrease rate by 200 units/hr (- 2 mL/hr)
PTT 131 to 199.9 seconds:: HOLD for 1 hr. Then decrease by 300 units/hr (- 3mL/hr)
PTT greater than or equal to 200 seconds:: HOLD for 2 hrs & Notify Provider. Then decrease by 400 units/hr
(- 4mL/hr)
Lab follow-up:: Each change, PTT q6h until 2 consecutive are therapeutic. Then
PTT daily.
02/05/25 21:51
Lactic Acid Urgent
Pro-BNP [NT-proBNP] Urgent
Troponin I Urgent
02/05/25 21:56
Admit/Transfer Patient As Directed
Co-Sign Provider:
Level of Care: Inpatient admission
Assign to:: Telemetry
Physician / Group: Viktor
Diagnosis: PE
Reason for Telemetry: Chest Pain syndromes
Date to Stop Telemetry: 02/07/25
Time to Stop Telemetry: 11:00
Reason for Hospitalization: PE
Expected length of stay greater than two midnights?: Yes
ELOS- Estimated Length of Stay in days: 2
I certify the patient meets the requirements for IP care: Yes
02/05/25 21:57
PRN Pain Medication Management As Directed
May give lesser potent ordered pain med per pt: Yes
preference::
Protocol:: Medication orders for pain may be administered in a
manner that supports deferring to patient preference
when the pt is:
- Requesting an ordered lesser potent pain medication.
Least to most potent pain medications are defined
as: acetaminophen < NSAID < tramadol < opioids
(morphine, oxycodone, hydromorphone).
- Requesting a lesser dose of the same medication IF
ORDERED.
- Requesting a less intrusive route of administration
if both routes are prescribed by the provider (PO <
IV).
02/05/25 21:58
Code Status As Directed
Resuscitation Status: Full Code
02/06/25 01:00
Heparin 3,600 units IV PRN PRN
Heparin 7,200 units IV PRN PRN
02/06/25 03:34
PTT Routine
02/07/25 11:00
DC Protocol for Telemetry ONCE
Abnormal Lab Results
02/05/25
14:53
MCV 79.5 L fL
(80.0-94.0)
Abs Immat Gran (auto) 0.1 H 10^3/uL
(0-0.05)
Absolute Monos (auto) 0.7 H 10^3/uL
(0.1-0.6)
Immature Gran % 0.6 H %
(0-0.5)
Lymphocytes % 19.5 L %
(20.5-51.1)
Glucose 124 H mg/dl
(70-99)
02/05/25 14:53
02/05/25 14:53
Vital Signs
Initial and Last Documented VS:
Initial Vital Signs
Temp Pulse Resp BP Pulse Ox
98.3 F 107 20 120/84 98
02/05/25 14:41 02/05/25 14:41 02/05/25 14:41 02/05/25 14:41 02/05/25 14:41
Last Documented Vital Signs
Temp Pulse Resp BP Pulse Ox
98.3 F 81 20 135/81 94
02/05/25 14:41 02/05/25 22:45 02/05/25 22:45 02/05/25 21:00 02/05/25 22:45
<Coy Maria MD - Last Filed: 02/05/25 20:42>
Orders/Labs/Results
Orders:
Orders
02/05/25 14:44
Electrocardiogram (*1) Urgent
Reason for Study: Chest Pain
EKG- Treatment ONCE
02/05/25 14:53
Complete Blood Count/With Diff Urgent
Comprehensive Metabolic Panel Urgent
Prothrombin Time Urgent
02/05/25 17:40
0.9% Sodium Chloride 1000 ml [Nss] 1,000 ml IV BOLUS
Acetaminophen [Tylenol] 1,000 mg PO NOW STA
02/05/25 17:41
CT Chest PE Study Urgent
Comment:
Reason For Exam: left chest pain, SOB, hx PE
02/05/25 17:43
Docusate Sodium [Colace] 100 mg PO NOW STA
Polyethylene Glycol Powder [Miralax] 17 grams PO NOW STA
02/05/25 20:43
HYDROmorphone [Dilaudid] 0.5 mg IV NOW STA
02/05/25 21:01
Heparin 7,200 units IV NOW STA
Nursing to Place Non Medication Order As Directed
Physician Order: PTT 6 hours after initial start of Heparin infusion
Above order entered?: Yes
02/05/25 21:11
PTT Urgent
Comment: Obtain baseline before beginning heparin infusion if not already collected
02/05/25 21:15
PULMONARY CONSULT Urgent
Consulting Provider: Sameer Paredes
Was physician already notified: Yes
Heparin 84098 Units/250 ml 25,000 units in 250 ml IV PER PROTOCOL
Weight to be used for heparin protocol in kilograms (kg):: 90.2
Protocol:: DVT/PE
PTT Goal Range to be used:: PTT 73 to 111 seconds
Order type:: Initial
INITIAL Infusion Dose (UNITS/KG/hr) & then follow protocol:: 18 units/kg/hr
Infusion Dose in UNITS/hr & then follow protocol (UNITS/hr):: 1,600
INFUSION RATE in mL/hr & then follow protocol (mL/hr):: 16
For DVT/PE algorithm, re-bolus for low PTT?: Yes
PTT less than or equal to 64 seconds:: Re-bolus 80 units/kg (max 10,000units). Increase by 400 units/hr
(+ 4mL/hr)
PTT 64.1 to 72.9 seconds:: Re-bolus 40 units/kg (max 5,000 units). Increase by 200 units/hr
(+ 2mL/hr)
PTT 73 to 111 seconds:: Target Range. No change in rate.
PTT 111.1 to 130.9 seconds:: Decrease rate by 200 units/hr (- 2 mL/hr)
PTT 131 to 199.9 seconds:: HOLD for 1 hr. Then decrease by 300 units/hr (- 3mL/hr)
PTT greater than or equal to 200 seconds:: HOLD for 2 hrs & Notify Provider. Then decrease by 400 units/hr
(- 4mL/hr)
Lab follow-up:: Each change, PTT q6h until 2 consecutive are therapeutic. Then
PTT daily.
02/05/25 21:51
Lactic Acid Urgent
Pro-BNP [NT-proBNP] Urgent
Troponin I Urgent
02/05/25 21:56
Admit/Transfer Patient As Directed
Co-Sign Provider:
Level of Care: Inpatient admission
Assign to:: Telemetry
Physician / Group: Viktor
Diagnosis: PE
Reason for Telemetry: Chest Pain syndromes
Date to Stop Telemetry: 02/07/25
Time to Stop Telemetry: 11:00
Reason for Hospitalization: PE
Expected length of stay greater than two midnights?: Yes
ELOS- Estimated Length of Stay in days: 2
I certify the patient meets the requirements for IP care: Yes
02/05/25 21:57
PRN Pain Medication Management As Directed
May give lesser potent ordered pain med per pt: Yes
preference::
Protocol:: Medication orders for pain may be administered in a
manner that supports deferring to patient preference
when the pt is:
- Requesting an ordered lesser potent pain medication.
Least to most potent pain medications are defined
as: acetaminophen < NSAID < tramadol < opioids
(morphine, oxycodone, hydromorphone).
- Requesting a lesser dose of the same medication IF
ORDERED.
- Requesting a less intrusive route of administration
if both routes are prescribed by the provider (PO <
IV).
02/05/25 21:58
Code Status As Directed
Resuscitation Status: Full Code
02/06/25 01:00
Heparin 3,600 units IV PRN PRN
Heparin 7,200 units IV PRN PRN
02/06/25 03:34
PTT Routine
02/07/25 11:00
DC Protocol for Telemetry ONCE
Abnormal Lab Results
02/05/25
14:53
MCV 79.5 L fL
(80.0-94.0)
Abs Immat Gran (auto) 0.1 H 10^3/uL
(0-0.05)
Absolute Monos (auto) 0.7 H 10^3/uL
(0.1-0.6)
Immature Gran % 0.6 H %
(0-0.5)
Lymphocytes % 19.5 L %
(20.5-51.1)
Glucose 124 H mg/dl
(70-99)
02/05/25 14:53
02/05/25 14:53
Vital Signs
Initial and Last Documented VS:
Initial Vital Signs
Temp Pulse Resp BP Pulse Ox
98.3 F 107 20 120/84 98
02/05/25 14:41 02/05/25 14:41 02/05/25 14:41 02/05/25 14:41 02/05/25 14:41
Last Documented Vital Signs
Temp Pulse Resp BP Pulse Ox
98.3 F 81 20 135/81 94
02/05/25 14:41 02/05/25 22:45 02/05/25 22:45 02/05/25 21:00 02/05/25 22:45
<Satci Tellez NP - Last Filed: 02/05/25 23:34>
*Radiology
Radiology exam reviewed: radiology read reviewed
*Pulse Oximetry
SaO2: 98
Oxygen Mode of Delivery: Room air
Patient hypoxic: no
*Critical Care Note
Total Time (30-74mins, 75-104mins- exclusive of procedures): Not Applicable
<Staci Tellez NP - Last Filed: 02/05/25 23:34>
Update Note
Update Note:
Patient to the emergency department for evaluation of severe left-sided chest pain. Symptoms started yesterday. He reports difficulty taking a deep breath, increased pain with coughing. Labs reviewed. No concerning findings. Vital signs are
stable, he remains afebrile. Pulse ox 96 to 97% on room air. He was sent for chest CT PE study. Bilateral lower lobe pulmonary embolisms noted. RV to LV ratio 0.94. Discussed findings with patient and spouse. Patient is uncomfortable with
discharge home at this point due to his pain level and recent surgical procedure. Case discussed with Dr. Maria who also evaluated this patient and recommends admission for this patient. Dr. Paredes was consulted. Agreeable to admission and
initiation of heparin. Will admit to hospitalist
ED Attending Note
<Staci Tellez NP - Last Filed: 02/05/25 23:34>
-
Portions of this chart may have been created with voice recognition software.� Occasional wrong word or��sound alike� substitutions may have occurred due to the inherent limitations of voice recognition software.
<Coy Maria MD - Last Filed: 02/05/25 20:42>
ED Attending Note
Patient seen and examined by attending physician: Yes
I performed the substantive portion of visit, reviewed & personally made and approve the management plan that is documented in note by myself or TALAT.: Yes
ED Attending Note:
54-year-old male sudden onset of left pleuritic chest pain yesterday. Clearly pleuritic in nature. History of DVT in the left leg. History of PE 1 year ago. Recent TURP 1 week ago. Has had a postoperative complication of urinary retention and
has an indwelling Corey.
On exam patient is nontoxic but quite uncomfortable with pain with breathing or movement. No respiratory distress. Stable vital signs.
PE study is positive for mild clot burden.
We initially entertained outpatient management with DOAC. However given patient's level of discomfort along with recent surgery patient will be admitted for heparin pain management and further care
Discharge Plan
Departure
Patient Disposition: Admit
Date of Disposition: 02/05/25
Time of Disposition: 21:13
Presentation/result/management discussed w/ accepting MD/DO: Hospitalist
Patient with high blood pressure during this ER visit?: No
Condition: Fair
Covid-19: Not Applicable
Discharge Problem:
Pulmonary embolism, Intractable pain
Interventions
Interventions:
*Risk Screen - Suicide Last Done: 02/05/25 14:41
*General Assessment Last Done: 02/05/25 18:25
*Neglect/Abuse Screening Last Done: 02/05/25 18:23
*ED COVID-19 Vaccine History Last Done: 02/05/25 14:41
*ED Influenza Vaccine History Last Done: 02/05/25 14:41
[facility] Risk Assessment Tool Last Done: 02/05/25 18:23
ED- Cardiac Assessment Last Done: 02/05/25 18:24
ED- Pulmonary Assessment Last Done: 02/05/25 18:25
[2025-02-05] MEDS: TYLENOL 1000 MG PO (18:11)
[2025-02-05] MEDS: NSS 1000 IV (18:12)
[2025-02-05 18:23] VITALS: BMI 27.0
[2025-02-05] MEDS: DILAUDID 0.5 MG IV (20:47)
[2025-02-05 20:48] VITALS: BP 137/91
[2025-02-05 21:00] VITALS: BP 135/81
[2025-02-05] MEDS: HEPARIN 25000 UNITS/250 ML IV (21:24)
[2025-02-05] MEDS: HEPARIN 7200 UNITS IV (21:25)
[2025-02-05 21:32] LABS: APTT 30.8 Sec (23.4-35.0)
--- NOTE | 2025-02-05 22:00 | HPS.HSE ---
Family Physician
-
Family Physician: Aureliano Pino
Chief Complaint
-
Chest Pain
History of Present Illness
Patient is a 54y M with PMH significant for BPH, hypertension and prior DVT who presents to ED complaining of left-sided chest pain. Patient underwent TURP on 01/26/25. This was complicated by urinary retention and he had a Corey catheter in
place until Thursday 02/01. Corey was discontinued; however, he was unable to urinate and had to return to the ED on Saturday evening to have Corey replaced. He has been on tamsulosin and Bactrim since Saturday evening (Bactrim stopped today). Patient
has been very immobile since his surgery / with Corey in place. On evening he developed intermittent, sharp, left lateral chest discomfort. Pain was worse with deep breathing or hiccups. He denies fevers, cough or SOB - but is not able
to take a deep breath. Today his pain seemed to be worse and he contacted his Urologist who referred him to the ED.
Imaging in the ED shows pulmonary emboli.
Patient has a prior h/o LLE DVT following tibial plateau fracture / surgery in 2023. He was on Eliquis from October to January 2024. He has been off of this since with no issues.
Medical History
Past Medical History
Past Medical History: Reports Other
Additional Past Medical History:
Hypertension
BPH
Asthma
Rosacea
BPH
Migraine Headaches
Past Surgical History: Reports Other
Additional Past Surgical History:
TURP (01/28/25)
Left Tibial Plateau Repair
Bilateral Knee Arthroscopies (multiple)
Hernia Repairs
Social History
Tobacco: Former Smoker (Quit smoking at age 21. Minimal total use.)
Alcohol: Occasional
Drug: None
Personal:
Living: With Family
Family History
Family History: Not pertinent
Allergies / Home Medications
Allergies reflects when Allergies were last updated in [employer].
Home Medications with original date entered in [employer]
Allergy/Medication List:
Allergies
Allergy/AdvReac Type Severity Reaction Status Date / Time
hazelnut Allergy Anaphylaxis Verified 02/05/25 14:41
Penicillins Allergy As a child Verified 02/05/25 14:41
pistachio nut Allergy Anaphylaxis Verified 02/05/25 14:41
tree nut Allergy Anaphylaxis Verified 02/05/25 14:41
walnut Allergy Anaphylaxis Verified 02/05/25 14:41
Home Medications
amlodipine 5 mg tablet 5 mg PO HS Blood Pressure 04/21/24
lisinopril 20 mg tablet 20 mg PO HS Blood Pressure 04/21/24
pseudoephedrine HCl 60 mg tablet 60 mg PO HSPRN PRN allergies ##0 01/22/25
dimenhydrinate 25 mg chewable tablet (Dramamine) 25 mg PO Q8HPRN PRN vergo 02/05/25
fexofenadine 60 mg tablet 60 mg PO BIDPRN PRN allergies 02/05/25
ibuprofen 200 mg tablet (Advil) 200 mg PO Q6HPRN PRN mild pain 02/05/25
ketotifen fumarate 0.025 % (0.035 %) eye drops (Allergy Eye (ketotifen)) 1 drp BOTH EYES BIDPRN PRN allergies 02/05/25
psyllium 1 packet PO DAILY Constipation 02/05/25
sulfamethoxazole 800 mg-trimethoprim 160 mg tablet (Bactrim DS) 1 tab PO BID Infection 02/05/25
tamsulosin 0.4 mg capsule 0.4 mg PO DAILY Urinary Issue 02/05/25
Review of Systems
-
History Source: Patient
A 12 point ROS was completed and negative except as noted: Yes
Constitutional: Denies Fever or Chills
Respiratory: Reports Trouble Breathing; Denies Cough
Cardiac: Reports Chest Pain; Denies Diaphoresis or Palpitations
Abdomen/GI: Denies Abdominal Pain, Nausea, Vomiting or Diarrhea
: Reports Other (Corey in place.); Denies Bleeding
Neurological: Denies Dizzy or Headache
Psych: Denies Depression or Anxiety
Physical Exam
Vital Signs
Vital Signs
Temp Pulse Resp BP Pulse Ox
98.3 F 79 16 135/81 94
02/05/25 14:41 02/05/25 21:15 02/05/25 21:15 02/05/25 21:00 02/05/25 21:15
Physical Exam
General: Other (54y M in intermittent, mild distress due to chest pain)
HEENT: Moist mucous membranes
Respiratory: Other (Mild pleural rub over L base. Otherwise clear.)
Cardiac: S1/S2 and Regular Rhythm; No Murmur
GI: Soft, Non Tender, Non Distended and Normal Bowel Sounds
Genito-urinary: Other (Corey in place draining clear, light yellow urine.)
Musculoskeletal: No Clubbing, No Cyanosis and No Edema
Neuro: AO x 3
Laboratory Results
-
02/05/25 14:53
02/05/25 14:53
Laboratory Results
PT 13.4 Sec (11.4-14.6) 02/05/25 14:53
INR 1.01 02/05/25 14:53
APTT 30.8 Sec (23.4-35.0) 02/05/25 21:11
Total Bilirubin 0.6 mg/dl (0.2-1.3) 02/05/25 14:53
AST 18 U/L (17-59) 02/05/25 14:53
ALT 24 U/L (0-50) 02/05/25 14:53
Alkaline Phosphatase 67 U/L (38-126) 02/05/25 14:53
Impression/Plan
-
A/P: Patient is a 54y M with PMH significant for asthma, HTN and BPH who presents to ED complaining of left sided chest pain.
Bilateral Pulmonary Emboli
- Admit for further evaluation and treatment.
- Two LLL subsegmental emboli and one RLL subsegmental embolus seen on CT.
- Pain syndrome suggests inflammation +/- infarct in the LLL.
- IV heparin x 24 hours.
- Pain control / supportive care.
- Not hypoxemic, hypotensive, etc.
- Check LE dopplers in the AM for completeness - suspect recurrent LLE DVT.
- Check Echo in AM.
- Pulmonary consulted for additional recommendations.
- Follow for any new / worsening symptoms.
BPH s/p TURP (01/28/25)
Urinary Retention s/p TURP
- Maintain Corey catheter.
- Continue tamsulosin.
- Monitor closely for development of clot / Corey dysfunction / etc on IV heparin.
- Tentative plan is for Corey removal / repeat TOV on Saturday.
Benign Hypertension
- Continue lisinopril with holding parameters.
- Hold amlodipine acutely.
- Adjust regimen as needed.
Code Status: Full
[2025-02-05 22:31] LABS: Troponin I < 0.012 ng/ml
[2025-02-05] MEDS: PERCOCET 5/325 2 TABLET PO (23:20)
[2025-02-05] MEDS: FLUSH (NSS) 1 FLUSH IV (23:20)
[2025-02-06] VITALS (8 sets, daily range): BP systolic 109–126; BP diastolic 69–85; BMI 29.4
--- NOTE | 2025-02-06 00:33 | PTCARENOTE ---
Patient received from ED. Alert and oriented x3 and pleasant. Call perry within reach.
[2025-02-06] MEDS: ZESTRIL 20 MG PO ×2 (01:08→22:47)
[2025-02-06 04:11] LABS: APTT 64.4 Sec (23.4-35.0)
[2025-02-06 04:23] LABS: Blood Urea Nitrogen 16 mg/dl (9-20); Calcium 9.0 mg/dl (8.4-10.2); Carbon Dioxide 26 mmol/L (22-30); Chloride 103 mmol/L (98-107); Estimated Creatinine Clearance 78 ml/min; Glucose 99 mg/dl (70-99); Potassium 4.9 mmol/L (3.5-5.1); Sodium 135 mmol/L (135-145); eGFR > 60.00
[2025-02-06] MEDS: HEPARIN 3600 UNITS IV (04:44)
[2025-02-06] MEDS: DILAUDID 0.5 MG IV (08:15)
[2025-02-06] MEDS: FLOMAX 0.4 MG PO (08:16)
[2025-02-06 11:19] LABS: APTT 130.2 Sec (23.4-35.0)
--- NOTE | 2025-02-06 11:26 | W.PN.HOSP.TC ---
Today's Communication/Plan
-
see plan
Assessment / Plan
Assessment / Plan
Gen: NAD, AAOx3.
Eyes: EOMI, PERRLA, no scleral icterus.
Neck: supple.
CV: RRR, +S1/S2, no m/r/g.
Resp: CTAB, no rales, wheezes, or rhonchi.
Abd: +BS, soft, NT, ND
Skin: No rashes.
Neuro: CN 2-12 intact, non-focal.
Psych: Normal mood and affect.
CTA chest: Positive for pulmonary embolism with mild clot burden. Proximal subsegmental pulmonary embolism in the posterior basal segment of the left lower lobe. Proximal subsegmental pulmonary embolism in the lateral basal segment of the left lower
lobe. Subsegmental pulmonary embolism in the posterior medial basal segment of the right lower lobe. Pulmonary artery branching order level of the most proximal pulmonary embolism: Left lower lobe proximal subsegmental pulmonary artery division. The
RV to LV ratio 0.94.
B/L LE U/S: No evidence of DVT of the RLE. Probable chronic DVT of the left leg from the knee to and including the calf. Improved from previous exam.
Acute B/L PEs:
-suspect provoked by recent TURP
-imaging above
-cont heparin gtt
-Pain syndrome suggests inflammation +/- infarct in the LLL.
-Pain control / supportive care.
-currently not hypoxemic or hypotensive
-pulm to see later today, discussed with pulm
-Trop NEG, RV/LV ratio 0.94, no indication for echo (cancelled)
BPH:
-with Urinary Retention s/p TURP on 01/28/25
-cont nickerson catheter.
-cont Flomax
-tentative plan is for Nickerson removal/repeat TOV on 02/08
Essential HTN:
-cont ACEi
Patient's updated at bedside extensively.
FULL/Heparin
Anticipated Discharge: 24 - 48 hours
Subjective/Interval History
-
Date of Service: February 06, 2025
Patient complains of cardiac chest pain as well as 'hiccups.'
Objective Data
-
Labs:
Laboratory Results
02/06/25 02/06/25
03:49 10:56
APTT 64.4 H 130.2 H
Sodium 135
Potassium 4.9
Chloride 103
Carbon Dioxide 26
BUN 16
Creatinine 1.2
Glucose 99
Calcium 9.0
Vital Signs:
Vital Signs
Temp Pulse Resp BP Pulse Ox
98.6 F 77 16 115/69 95
02/06/25 11:22 02/06/25 11:22 02/06/25 11:22 02/06/25 11:22 02/06/25 11:22
--- NOTE | 2025-02-06 12:25 | CM ---
CM reviewed chart, patient seen bedside with , initial assessment completed.
Patient is a 54y M with PMH significant for BPH, hypertension and prior DVT who presents to ED complaining of left-sided chest pain.
Patient resides with his and two daughters in a multiple story home, three steps to enter. Bedroom on second floor, normal flight of steps up.
Patient has a cane at home after knee surgery, does not typically use any device.
Patient denies VN/SNF.
PCP Aureliano Pino, [facility], confirms prescription coverage.
Patient denies insecurities at home.
CM will continue to follow.
Plan; home with family
[2025-02-06] MEDS: HEPARIN 25000 UNITS/250 ML IV (12:55)
--- NOTE | 2025-02-06 17:42 | CON.PUL ---
Consultation
Consultation Request
Date/Time Consultation Requested: 02/05/2025 - 2114
Date/Time Consultation Performed: 02/06/2025 - 1541
Requesting Provider: Staci Tellez NP
Performing Provider: Dr. Paredes
Reason for Consultation: Acute PE
Medical History
-
Chief Complaint: Chest pain/SOB/Cough
History of Present Illness:
54-year-old male with a past medical history of left lower extremity DVT, GERD, rosacea, history of stress fracture, chronic Corey s/p TURP with urinary retention, mild ELENA not on CPAP, and history of migraines who presents with chest pain + SOB and
cough. Patient recently underwent a TURP last (02/18), which was complicated and required Croey to remain in place. The Corey was removed on Saturday which unfortunately resulted in retention and had to be replaced. He was not as active
after this. He was on Flomax and Bactrim since Saturday evening and Bactrim was stopped prior to arrival. On he developed left-sided chest discomfort with SOB and hiccups/spasms in his chest/left upper quadrant. In the ER he was afebrile,
tachycardic to 107 bpm, tachypneic to 20 bpm, BP 120/84 and he was saturating 98% on room air. CTA chest performed showing bilateral pulmonary emboli with mild clot burden, involving the lower lobe proximal subsegmental pulmonary arteries. Patient
given IVF with 1 L bolus NS 0.9%, 0.5 mg Dilaudid, 1 g Tylenol and started on heparin drip. Patient admitted to the hospitalist service and Pulmonary service consulted for additional management/recommendations.
When I saw the patient, he was resting in bed with his , Kimberly, present at bedside. Patient continues to have a dry cough and goes into coughing spells when he talks too much. Continues to have spasm in his left side chest/left upper
quadrant, sometimes described as a hiccup. He feels better than when he first came in and per the , he looks much better than prior to arrival. He currently denies ALVES, nausea, fevers or chills.
Of note, patient had previously seen us in the [facility] office in March 2022 due to mild ELENA. He was never started on CPAP as he wanted to think about it and was recommended to do positional therapy for now.
PMHx: GERD, rosacea, asthma, history of left lower extremity DVT, history of stress fracture, Corey s/p TURP with urinary retention and now with ongoing Corey catheter, mild ELENA, history of migraines
PSHx: Robotic assisted T TALAT repair of bilateral inguinal hernias with mesh (February 2021), right knee surgery, hernia surgery, left knee arthroscopy with sub-chondroplasty, TURP
Past Medical History
Past Medical History: Other (Above as per HPI)
Past Surgical History: Other (Above as per HPI)
Social History
Tobacco: Former Smoker (Quit at 21 years old; < 5 pack-year history)
Alcohol: Occasional
Drug: None
Personal:
Living: With Family
Family History
Family History: Cancer (Maternal grandmother: Lung cancer (smoker)) and Hypertension (Mother)
Allergies / Home Medications
Allergies
Allergy/AdvReac Type Severity Reaction Status Date / Time
hazelnut Allergy Anaphylaxis Verified 02/05/25 14:41
Penicillins Allergy As a child Verified 02/05/25 14:41
pistachio nut Allergy Anaphylaxis Verified 02/05/25 14:41
tree nut Allergy Anaphylaxis Verified 02/05/25 14:41
walnut Allergy Anaphylaxis Verified 02/05/25 14:41
Home Medications
�Medication �Instructions �Recorded �Confirmed �Last Taken �Type
amlodipine 5 mg tablet 5 mg PO HS Blood Pressure 04/21/24 02/05/25 02/04/25 History
lisinopril 20 mg tablet 20 mg PO HS Blood Pressure 04/21/24 02/05/25 02/04/25 History
pseudoephedrine HCl 60 mg tablet 60 mg PO HSPRN PRN allergies ##0 01/22/25 02/05/25 01/27/25 20:30 History
dimenhydrinate 25 mg chewable 25 mg PO Q8HPRN PRN vergo 02/05/25 02/05/25 Unknown History
tablet (Dramamine)
fexofenadine 60 mg tablet 60 mg PO BIDPRN PRN allergies 02/05/25 02/05/25 Unknown History
ibuprofen 200 mg tablet (Advil) 200 mg PO Q6HPRN PRN mild pain 02/05/25 02/05/25 02/05/25 History
ketotifen fumarate 0.025 % (0.035 1 drp BOTH EYES BIDPRN PRN 02/05/25 02/05/25 Unknown History
%) eye drops (Allergy Eye allergies
(ketotifen))
psyllium 1 packet PO DAILY Constipation 02/05/25 02/05/25 3 Days Ago History
~02/02/25
sulfamethoxazole 800 1 tab PO BID Infection 02/05/25 02/05/25 02/05/25 History
mg-trimethoprim 160 mg tablet
(Bactrim DS)
tamsulosin 0.4 mg capsule 0.4 mg PO DAILY Urinary Issue 02/05/25 02/05/25 02/05/25 History
Review of Systems
-
History Source: Patient
All other systems: Negative unless noted
Vitals / Labs / Diagnostic Testing
Vital Signs
Temp Pulse Resp BP Pulse Ox
98.6 F 77 16 115/69 95
02/06/25 11:22 02/06/25 11:22 02/06/25 11:22 02/06/25 11:22 02/06/25 11:22
Lab Data
02/05/25 14:53
02/06/25 03:49
Laboratory Results
02/05/25 02/05/25 02/06/25
14:53 21:11 03:49
PT 13.4
INR 1.01
APTT 30.8 64.4 H
02/06/25
10:56
PT
INR
APTT 130.2 H
Diagnostic Testing:
Physical Exam
-
HEENT: Normocephalic and Anicteric
Cardiovascular: S1/S2 and Peripheral Edema (negative)
Respiratory: Wheeze (negative), Rales (negative), Rhonchi (negative) and Non-Labored Respirations
GI: Soft, Non Distended, Non Tender and Normal Bowel Sounds
Neurology: Awake, Alert, Oriented and Tremors (negative)
Skin: Warm and Dry
General: Respiratory Distress (negative), Comfortable, Fever (negative) and Chills (negative)
Assessment
-
Assessment: 54-year-old male with a past medical history of left lower extremity DVT, GERD, rosacea, history of stress fracture, chronic Corey s/p TURP with urinary retention, mild ELENA not on CPAP, and history of migraines who presents with chest
pain + SOB and cough. Patient recently underwent a TURP last (02/18), which was complicated and required Corey to remain in place. The Corey was removed on Saturday which unfortunately resulted in retention and had to be replaced. He was
not as active after this. He was on Flomax and Bactrim since Saturday evening and Bactrim was stopped prior to arrival. On he developed left-sided chest discomfort with SOB and hiccups/spasms in his chest/left upper quadrant. In the ER he
was afebrile, tachycardic to 107 bpm, tachypneic to 20 bpm, BP 120/84 and he was saturating 98% on room air. CTA chest performed showing bilateral pulmonary emboli with mild clot burden, involving the lower lobe proximal subsegmental pulmonary
arteries. Patient given IVF with 1 L bolus NS 0.9%, 0.5 mg Dilaudid, 1 g Tylenol and started on heparin drip. Patient admitted to the hospitalist service and Pulmonary service consulted for additional management/recommendations.
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
Impression:
#Submassive pulmonary embolism involving the subsegmental lower lobe pulmonary arteries without RV strain (PESI score: Class I, 0 � 1.6% 30-day mortality risk)
#Subpleural opacity in postero-medial LLL, likely due to pulmonary infarct
#Left lower extremity DVT suspicious for chronic DVT (history of DVT in left leg s/p tibial plateau fracture s/p surgery in 2023 -treated with Eliquis from October until January 2024)
#Mild ELENA
#History of migraines
Plan:
- Continue with systemic anticoagulation, currently on heparin drip
- Given normal proBNP and negative troponin, no need for echo at this time
- Peripheral lower extremity duplex US showed suspected chronic DVT of left leg from popliteal vein to PT vein -all were partially compressible; suspicious for chronic DVT
- He has a history of a left lower extremity DVT following a tibial plateau fracture in 2023, and was on Eliquis from October until January 2024. He says that he saw a vein doctor after that time and was told that there is chronic changes in
that left leg and that there was no intervention to be done.
- Given that he has prior injury to his left lower extremity venous system, I believe that he is at increased risk of recurrent left lower extremity DVT. Recommend outpatient hematology evaluation to assess duration of AC needed, as he may require
lifelong AC
- Outpatient pulmonary evaluation to be arranged for full PFTs and to re-discuss his history of ELENA
- Maintain SpO2 >90-94% with supplemental O2 as needed
- prn nebulized bronchodilators - not currently bronchospastic
- Incentive spirometer encouraged q1hr while awake
- Replete electrolytes with K>4, Mg>2
- Trend H/H and transfuse if needed to keep Hb>7g/dL; keep plt>50k (given that he is now on heparin drip)
- Maintain euglycemia with goal BG >100 and <180
- DVT ppx: heparin gtt
Pulmonary service will continue to follow along.
Data:
CTA chest 02/05/2025:
Positive for pulmonary embolism with mild clot burden.
Proximal subsegmental pulmonary embolism in the posterior basal segment of the left lower lobe. Proximal subsegmental pulmonary embolism in the lateral basal segment of the left lower lobe. Subsegmental pulmonary embolism in the posterior medial
basal segment of the right lower lobe.
Pulmonary artery branching order level of the most proximal pulmonary embolism: Left lower lobe proximal subsegmental pulmonary artery division.
The RV to LV ratio 0.94.
Bilateral lower extremity duplex US 02/06/2025:
No evidence of DVT of the right lower extremity.
Probable chronic DVT of the left leg from the knee to and including the calf. Improved from previous exam.
Patient was seen and evaluated on 02/06/2025. Total time spent today was 61 minutes for this encounter. Time includes reviewing laboratory test/imaging results, reviewing pertinent medical records, obtaining and reviewing medical history,
performing an appropriate exam, ordering medications, tests and procedures. Time also includes documentation of this encounter, coordinating patient care and communicating with other healthcare professionals. Total time does not include separately
billed tests performed on this date of service.
[2025-02-06 18:02] LABS: APTT 63.4 Sec (23.4-35.0)
[2025-02-06] MEDS: HEPARIN 7200 UNITS IV (18:35)
[2025-02-06] MEDS: METHOCARBAMOL 1500 MG PO (22:44)
[2025-02-06] MEDS: TESSALON PERLES 200 MG PO (22:44)
[2025-02-07 01:08] LABS: APTT 145.0 Sec (23.4-35.0)
[2025-02-07 03:44] VITALS: BP 114/79
[2025-02-07] MEDS: HEPARIN 25000 UNITS/250 ML IV (05:20)
[2025-02-07 06:56] LABS: Hematocrit 41.6 % (39.0-52.0); Hemoglobin 14.1 g/dL (13.0-18.0); Mean Corp Hgb Conc. 33.9 g/dL (33.0-37.0); Mean Corpuscular Volume 81.3 fL (80.0-94.0); Platelet Count 268 10^3/uL (130-400); Red Cell Dist. Width 12.7 % (11.5-14.5)
[2025-02-07 07:15] VITALS: BP 111/75
[2025-02-07] MEDS: TESSALON PERLES 200 MG PO ×3 (08:56→21:52)
[2025-02-07] MEDS: FLOMAX 0.4 MG PO (08:56)
[2025-02-07 09:26] LABS: APTT 45.0 Sec (23.4-35.0)
[2025-02-07] MEDS: HEPARIN 7200 UNITS IV (09:46)
--- NOTE | 2025-02-07 10:39 | CONS.URO ---
Consultation
-
Date/Time Consultation Performed: 02/07/25, 09
Performing Provider: Tracy
Reason for Consultation: nickerson removal, urinary retention
Medical History
History of Present Illness
54M wih hx BPH s/p TURP 01/26/25, hypertension and prior DVT who presents to ED complaining of left-sided chest pain, found to have bilateral PEs. He is now on a hep gtt.
From a urology standpoint, he underwent catheter removal on 02/01 and then required nickerson replacement 02/02 for urinary retention. He has been on flomax since Saturday he states.
He has had mild hematuria when getting up and going to the bathroom and straining. No issues with catheter drainage.
Allergies/Home Medications
Allergies
Allergy/AdvReac Type Severity Reaction Status Date / Time
hazelnut Allergy Anaphylaxis Verified 02/05/25 14:41
Penicillins Allergy As a child Verified 02/05/25 14:41
pistachio nut Allergy Anaphylaxis Verified 02/05/25 14:41
tree nut Allergy Anaphylaxis Verified 02/05/25 14:41
walnut Allergy Anaphylaxis Verified 02/05/25 14:41
Home Medications
�Medication �Instructions �Recorded �Confirmed �Type
amlodipine 5 mg tablet 5 mg PO HS Blood Pressure 04/21/24 02/05/25 History
lisinopril 20 mg tablet 20 mg PO HS Blood Pressure 04/21/24 02/05/25 History
pseudoephedrine HCl 60 mg tablet 60 mg PO HSPRN PRN allergies ##0 01/22/25 02/05/25 History
dimenhydrinate 25 mg chewable 25 mg PO Q8HPRN PRN vergo 02/05/25 02/05/25 History
tablet (Dramamine)
fexofenadine 60 mg tablet 60 mg PO BIDPRN PRN allergies 02/05/25 02/05/25 History
ibuprofen 200 mg tablet (Advil) 200 mg PO Q6HPRN PRN mild pain 02/05/25 02/05/25 History
ketotifen fumarate 0.025 % (0.035 1 drp BOTH EYES BIDPRN PRN 02/05/25 02/05/25 History
%) eye drops (Allergy Eye allergies
(ketotifen))
psyllium 1 packet PO DAILY Constipation 02/05/25 02/05/25 History
sulfamethoxazole 800 1 tab PO BID Infection 02/05/25 02/05/25 History
mg-trimethoprim 160 mg tablet
(Bactrim DS)
tamsulosin 0.4 mg capsule 0.4 mg PO DAILY Urinary Issue 02/05/25 02/05/25 History
Physical Exam
Vital Signs
Vital Signs
Temp Pulse Resp BP Pulse Ox
97.9 F 74 18 111/75 97
02/07/25 07:15 02/07/25 07:15 02/07/25 07:15 02/07/25 07:15 02/07/25 07:15
Lab / Testing Results
Laboratory Results
02/07/25 06:21
02/06/25 03:49
Physical Exam
General: Well Developed and No Apparent Distress
HEENT: Normocephalic
Respiratory: Clear
GI: Soft
Genito-urinary: Nickerson Catheter (urine light pink, off CBI)
Skin: Warm
Neuro: Awake, Alert and Oriented
Assessment / Plan
-
54M wih hx BPH s/p TURP 01/26/25, hypertension and prior DVT who presents to ED complaining of left-sided chest pain, found to have bilateral PEs. He is now on a hep gtt.
From a urology standpoint, he underwent catheter removal on 02/01 and then required nickerson replacement 02/02 for urinary retention.
Plan:
- Optimize patient for TOV - continue flomax, avoid constipation and narcotics, encourage ambulation
- Discussed pt may have mild hematuria with post-TURP healing as well as current anticoagulation he is on
- Encouraged hydration
- Will determine when TOV occurs pending DC plans from primary team
--- NOTE | 2025-02-07 10:50 | W.PN.HOSP.TC ---
Today's Communication/Plan
-
see plan
Assessment / Plan
Assessment / Plan
Gen: NAD, AAOx3.
Eyes: EOMI, PERRLA, no scleral icterus.
Neck: supple.
CV: remains RRR, +S1/S2, no m/r/g.
Resp: CTAB anteriorly, no rales, wheezes, or rhonchi.
Abd: remains +BS, soft, NT, ND
Skin: No rashes.
Neuro: CN 2-12 intact, non-focal.
Psych: Normal mood and affect.
CTA chest: Positive for pulmonary embolism with mild clot burden. Proximal subsegmental pulmonary embolism in the posterior basal segment of the left lower lobe. Proximal subsegmental pulmonary embolism in the lateral basal segment of the left lower
lobe. Subsegmental pulmonary embolism in the posterior medial basal segment of the right lower lobe. Pulmonary artery branching order level of the most proximal pulmonary embolism: Left lower lobe proximal subsegmental pulmonary artery division. The
RV to LV ratio 0.94.
B/L LE U/S: No evidence of DVT of the RLE. Probable chronic DVT of the left leg from the knee to and including the calf. Improved from previous exam.
Acute B/L PEs:
-suspect provoked by recent TURP
-imaging above
-cont heparin gtt until 1999 then switch to Eliquis
-Pain syndrome suggests inflammation +/- infarct in the LLL.
-Pain control / supportive care.
-currently not hypoxemic or hypotensive
-pulm following, discussed with pulm
-Trop NEG, RV/LV ratio 0.94, no indication for echo (cancelled)
BPH:
-with Urinary Retention s/p TURP on 01/28/25
-cont nickerson catheter.
-cont Flomax
-Uro following, discussed with Dr. Molina
-Nickerson removal/repeat TOV on 02/08 (will have this done inpt)
Essential HTN:
-cont ACEi
Patient's updated at bedside extensively.
FULL/Heparin
Anticipated Discharge: Within 24 hours
Subjective/Interval History
-
Date of Service: February 07, 2025
Pleuritic CP has improved. Pt c/o fatigue.
Objective Data
-
Labs:
Laboratory Results
02/07/25 02/07/25 02/07/25
00:31 06:21 09:01
WBC 7.7
Hgb 14.1
Hct 41.6
Plt Count 268
APTT 145.0 H 45.0 H
02/07/25
16:00
WBC
Hgb
Hct
Plt Count
APTT Pending
Vital Signs:
Vital Signs
Temp Pulse Resp BP Pulse Ox
97.9 F 74 18 111/75 97
02/07/25 07:15 02/07/25 07:15 02/07/25 07:15 02/07/25 07:15 02/07/25 07:15
I&O
02/06/25 02/07/25 02/08/25
06:59 06:59 06:59
Intake Total 1621 / 1621
Output Total 2650 / 2650
Balance -1029 / -1029
[2025-02-07 11:18] VITALS: BP 115/82
--- NOTE | 2025-02-07 14:13 | W.PN.PUL3 ---
Today's Communication / Plan
-
Parenteral anticoagulation
Agree with transitioning to NOAC tonight
Recommend case management consult to assess affordability of Eliquis
Outpatient pulmonary office follow-up to be arranged for full PFTs and symptom monitoring
Outpatient hematology evaluation recommended
No echo indicated
Okay for patient to get up OOB and ambulate as tolerated
Pulmonary service will continue to follow along
Assessment
-
Assessment: 54-year-old male with a past medical history of left lower extremity DVT, GERD, rosacea, history of stress fracture, chronic Corey s/p TURP with urinary retention, mild ELENA not on CPAP, and history of migraines who presents with chest
pain + SOB and cough. Patient recently underwent a TURP last (02/18), which was complicated and required Corey to remain in place. The Corey was removed on Saturday which unfortunately resulted in retention and had to be replaced. He was
not as active after this. He was on Flomax and Bactrim since Saturday evening and Bactrim was stopped prior to arrival. On he developed left-sided chest discomfort with SOB and hiccups/spasms in his chest/left upper quadrant. In the ER he
was afebrile, tachycardic to 107 bpm, tachypneic to 20 bpm, BP 120/84 and he was saturating 98% on room air. CTA chest performed showing bilateral pulmonary emboli with mild clot burden, involving the lower lobe proximal subsegmental pulmonary
arteries. Patient given IVF with 1 L bolus NS 0.9%, 0.5 mg Dilaudid, 1 g Tylenol and started on heparin drip. Patient admitted to the hospitalist service and Pulmonary service consulted for additional management/recommendations.
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
Impression:
#Submassive pulmonary embolism involving the subsegmental lower lobe pulmonary arteries without RV strain (PESI score: Class I, 0 � 1.6% 30-day mortality risk)
#Subpleural opacity in postero-medial LLL, likely due to pulmonary infarct
#Left lower extremity DVT suspicious for chronic DVT (history of DVT in left leg s/p tibial plateau fracture s/p surgery in 2023 -treated with Eliquis from October until January 2024)
#Mild ELENA
#History of migraines
#Urinary retention s/p TURP now with Corey catheter in place
Plan:
- Continue with systemic anticoagulation, currently on heparin drip
- Agree with transitioning to Eliquis tonight
- Case management consult recommended to assess affordability of Eliquis
- Given normal proBNP and negative troponin, no need for echo at this time
- Peripheral lower extremity duplex US showed DVT of left leg from popliteal vein to PT vein -all were partially compressible; suspicious for chronic DVT
- He has a history of a left lower extremity DVT following a tibial plateau fracture in 2023, and was on Eliquis from October until January 2024. He says that he saw a vein doctor after that time and was told that there is chronic changes in
that left leg and that there was no intervention to be done.
- Given that he has prior injury to his left lower extremity venous system, I believe that he is at increased risk of recurrent left lower extremity DVT. Recommend outpatient hematology evaluation to assess duration of AC needed, as he may require
lifelong AC
- Outpatient pulmonary evaluation to be arranged for full PFTs and to re-discuss his history of ELENA
- Defer Corey catheter management to urology
- Monitor for hematuria while on anticoagulation
- Maintain SpO2 >90-94% with supplemental O2 as needed
- prn nebulized bronchodilators - not currently bronchospastic
- Incentive spirometer encouraged q1hr while awake
- Replete electrolytes with K>4, Mg>2
- Trend H/H and transfuse if needed to keep Hb>7g/dL; keep plt>50k (given that he is now on heparin drip)
- Maintain euglycemia with goal BG >100 and <180
- DVT ppx: heparin gtt
Pulmonary service will continue to follow along.
Data:
CTA chest 02/05/2025:
Positive for pulmonary embolism with mild clot burden.
Proximal subsegmental pulmonary embolism in the posterior basal segment of the left lower lobe. Proximal subsegmental pulmonary embolism in the lateral basal segment of the left lower lobe. Subsegmental pulmonary embolism in the posterior medial
basal segment of the right lower lobe.
Pulmonary artery branching order level of the most proximal pulmonary embolism: Left lower lobe proximal subsegmental pulmonary artery division.
The RV to LV ratio 0.94.
Bilateral lower extremity duplex US 02/06/2025:
No evidence of DVT of the right lower extremity.
Probable chronic DVT of the left leg from the knee to and including the calf. Improved from previous exam.
Total time spent today was 38 minutes for this encounter. Time includes reviewing laboratory test/imaging results, reviewing pertinent medical records, obtaining and reviewing medical history, performing an appropriate exam, ordering medications,
tests and procedures. Time also includes documentation of this encounter, coordinating patient care and communicating with other healthcare professionals. Total time does not include separately billed tests performed on this date of service.
Subjective Data
-
Date of Service:
Date of Service: February 07, 2025
Chief Complaint: Pulmonary Follow Up
Subjective:
Pt seen this AM (late note entry). Resting in bed in NAD. Patient's at bedside, all questions were answered. Patient currently on heparin drip. He is on room air breathing comfortably. Afebrile overnight.
Review of Systems
General: Other (Negative unless mentioned above)
Objective Data
Data Reviewed
Vital Signs / I&O / Oxygen:
Vital Signs
Temp Pulse Resp BP Pulse Ox
97.7 F 88 16 115/82 96
02/07/25 11:18 02/07/25 11:18 02/07/25 11:18 02/07/25 11:18 02/07/25 11:18
Intake and Output
02/06/25 02/07/25 02/08/25
06:59 06:59 06:59
Intake Total 1621 / 1621 240 / 240
Output Total 2650 / 2650 900 / 900
Balance -1029 / -1029 -660 / -660
SaO2 96
Physical Exam
General: Respiratory Distress (negative), Comfortable, Chills (negative) and Sweats (negative)
HEENT: Normocephalic and Anicteric
Cardiovascular: S1-S2 and Peripheral Edema (negative)
Respiratory: Wheeze (negative), Crackles (Left base), Rhonchi (negative), Non-Labored Respirations and Stridor (negative)
GI: Soft, Non Distended, Non Tender and Normal Bowel Sounds
Neurology: Awake, Alert, Oriented and Tremors (negative)
Skin: Warm, Dry, Cyanosis (negative) and Jaundice (negative)
Labs/Micro/Reports
Lab Data
02/07/25 06:21
02/06/25 03:49
Laboratory Results
02/06/25 02/07/25 02/07/25
17:35 00:31 09:01
APTT 63.4 H 145.0 H 45.0 H
[2025-02-07 15:30] VITALS: BP 122/74
[2025-02-07 18:28] LABS: APTT > 200 Sec (23.4-35.0)
[2025-02-07 19:41] VITALS: BP 120/79
[2025-02-07] MEDS: ELIQUIS 10 MG PO (20:29)
[2025-02-07] MEDS: ZESTRIL 20 MG PO (21:52)
[2025-02-07 23:30] VITALS: BP 135/85
[2025-02-08 03:34] VITALS: BP 114/71
[2025-02-08 06:00] VITALS: BMI 28.7
[2025-02-08 07:00] VITALS: BP 124/83
[2025-02-08] MEDS: TESSALON PERLES 200 MG PO (08:12)
[2025-02-08] MEDS: FLOMAX 0.4 MG PO (08:12)
[2025-02-08] MEDS: ELIQUIS 10 MG PO (08:12)
--- NOTE | 2025-02-08 08:46 | W.PN.URO.CBU ---
Today's Communication / Plan
-
- Corey removal for trial of void today
- Post void bladder scan
- Continue daily tamsulosin at discharge
- Follow up in 3-4 weeks
Assessment / Plan
-
54M s/p TURP
Complicated by post op retention, posterior bladder neck separation
Admitted for b/l PE (prior hx of chronic LE DVT)
- Corey removal for trial of void today
- Post void bladder scan
- Continue daily tamsulosin at discharge
- Follow up in 3-4 weeks
Diagnosis
-
Date of Service: February 08, 2025
-
Patient Diagnosis:
BPH
Urinary retention
PE
Post Op Day:
Subjective
-
pain controlled
no hematuria
fatigued
no SOB
Objective
-
Vital Signs
Temp Pulse Resp BP Pulse Ox
98.1 F 67 18 124/83 97
02/08/25 07:00 02/08/25 07:00 02/08/25 07:00 02/08/25 07:00 02/08/25 07:00
Intake and Output
02/07/25 02/08/25 02/09/25
06:59 06:59 06:59
Intake Total 1621 / 1621 4080 / 4080
Output Total 2650 / 2650 3800 / 3800
Balance -1029 / -1029 280 / 280
Intake:
Oral fluids 1450 / 1450 4080 / 4080
IV piggybacks 171 / 171
Output:
Urine, Corey 2450 / 2450 3800 / 3800
Urine, Voided 200 / 200
Physical Exam
-
General - well developed, well nourished, no acute distress
Corey in place, clear urine
[2025-02-08 08:52] LABS: Hematocrit 42.4 % (39.0-52.0); Hemoglobin 14.0 g/dL (13.0-18.0); Mean Corp Hgb Conc. 33.0 g/dL (33.0-37.0); Mean Corpuscular Volume 81.5 fL (80.0-94.0); Platelet Count 282 10^3/uL (130-400); Red Cell Dist. Width 12.6 % (11.5-14.5)
--- NOTE | 2025-02-08 09:16 | W.PN.PUL3 ---
Today's Communication / Plan
-
Doing well, stable on RA
Transitioned to Eliquis, continue as OP with taper to 5mg after 7 days
Corey management per team
From our perspective, can d/c--we will arrange OP FU
Assessment
-
54-year-old male with a past medical history of left lower extremity DVT, GERD, rosacea, history of stress fracture, chronic Corey s/p TURP with urinary retention, mild ELENA not on CPAP, and history of migraines who presents with chest pain + SOB and
cough. Patient recently underwent a TURP last (02/18), which was complicated and required Corey to remain in place. The Corey was removed on Saturday which unfortunately resulted in retention and had to be replaced. He was not as active
after this. He was on Flomax and Bactrim since Saturday evening and Bactrim was stopped prior to arrival. On he developed left-sided chest discomfort with SOB and hiccups/spasms in his chest/left upper quadrant. In the ER he was afebrile,
tachycardic to 107 bpm, tachypneic to 20 bpm, BP 120/84 and he was saturating 98% on room air. CTA chest performed showing bilateral pulmonary emboli with mild clot burden, involving the lower lobe proximal subsegmental pulmonary arteries. Patient
given IVF with 1 L bolus NS 0.9%, 0.5 mg Dilaudid, 1 g Tylenol and started on heparin drip. Patient admitted to the hospitalist service and Pulmonary service consulted for additional management/recommendations.
Chronic conditions [employer]: GERD, rosacea, asthma, history of left lower extremity DVT, history of stress fracture, Corey s/p TURP with urinary retention and now with ongoing Corey catheter, mild ELENA, history of migraines
Impression:
#Submassive pulmonary embolism involving the subsegmental lower lobe pulmonary arteries without RV strain (PESI score: Class I, 0 � 1.6% 30-day mortality risk)
#Subpleural opacity in postero-medial LLL, likely due to pulmonary infarct
#Left lower extremity DVT suspicious for chronic DVT (history of DVT in left leg s/p tibial plateau fracture s/p surgery in 2023 -treated with Eliquis from October until January 2024)
#Mild ELENA
#History of migraines
#Urinary retention s/p TURP now with Corey catheter in place
Plan:
Continue with systemic anticoagulation, currently on heparin drip
Agree with transitioning to Eliquis
Case management consult recommended to assess affordability of Eliquis
Given normal proBNP and negative troponin, no need for echo at this time
He is stable on RA
Peripheral lower extremity duplex US showed DVT of left leg from popliteal vein to PT vein -all were partially compressible; suspicious for chronic DVT
He has a history of a left lower extremity DVT following a tibial plateau fracture in 2023, and was on Eliquis from October until January 2024. He says that he saw a vein doctor after that time and was told that there is chronic changes in that
left leg and that there was no intervention to be done.
Given that he has prior injury to his left lower extremity venous system, I believe that he is at increased risk of recurrent left lower extremity DVT. Recommend outpatient hematology evaluation to assess duration of AC needed, as he may require
lifelong AC
Outpatient pulmonary evaluation to be arranged for full PFTs and to re-discuss his history of ELENA
Defer Corey catheter management to urology
Monitor for hematuria while on anticoagulation
- Maintain SpO2 >90-94% with supplemental O2 as needed
- prn nebulized bronchodilators - not currently bronchospastic
- Incentive spirometer encouraged q1hr while awake
- Replete electrolytes with K>4, Mg>2
- Trend H/H and transfuse if needed to keep Hb>7g/dL; keep plt>50k (given that he is now on heparin drip)
- Maintain euglycemia with goal BG >100 and <180
- DVT ppx: heparin gtt
Pulmonary service will continue to follow along.
Data:
CTA chest 02/05/2025: Positive for pulmonary embolism with mild clot burden. Proximal subsegmental pulmonary embolism in the posterior basal segment of the left lower lobe. Proximal subsegmental pulmonary embolism in the lateral basal segment of the
left lower lobe. Subsegmental pulmonary embolism in the posterior medial basal segment of the right lower lobe. Pulmonary artery branching order level of the most proximal pulmonary embolism: Left lower lobe proximal subsegmental pulmonary artery
division. The RV to LV ratio 0.94.
Bilateral lower extremity duplex US 02/06/2025:
No evidence of DVT of the right lower extremity.
Probable chronic DVT of the left leg from the knee to and including the calf. Improved from previous exam.
Total time spent today was 40 minutes for this encounter. Time includes reviewing laboratory test/imaging results, reviewing pertinent medical records, obtaining and reviewing medical history, performing an appropriate exam, ordering medications,
tests and procedures. Time also includes documentation of this encounter, coordinating patient care and communicating with other healthcare professionals. Total time does not include separately billed tests performed on this date of service.
Subjective Data
-
Date of Service:
Date of Service: February 08, 2025
Chief Complaint: Pulmonary Follow Up
Subjective:
Doing well, stable on RA
No new complaints today
Objective Data
Data Reviewed
Vital Signs / I&O / Oxygen:
Vital Signs
Temp Pulse Resp BP Pulse Ox
98.1 F 67 18 124/83 97
02/08/25 07:00 02/08/25 07:00 02/08/25 07:00 02/08/25 07:00 02/08/25 07:00
Intake and Output
02/07/25 02/08/25 02/09/25
06:59 06:59 06:59
Intake Total 1621 / 1621 4080 / 4080
Output Total 2650 / 2650 3800 / 3800
Balance -1029 / -1029 280 / 280
SaO2 97
Physical Exam
General: Respiratory Distress (negative), Comfortable, Chills (negative) and Sweats (negative)
HEENT: Normocephalic, Anicteric and Moist Mucous Membranes
Cardiovascular: S1-S2 and Peripheral Edema (negative)
Respiratory: Wheeze (negative), Crackles (Left base), Rhonchi (negative), Non-Labored Respirations and Stridor (negative)
GI: Soft, Non Distended, Non Tender and Normal Bowel Sounds
Neurology: Awake, Alert, Oriented and Tremors (negative)
Skin: Warm, Dry, Cyanosis (negative) and Jaundice (negative)
Labs/Micro/Reports
Lab Data
02/08/25 07:20
Laboratory Results
02/07/25 02/07/25
09:01 17:29
APTT 45.0 H > 200 H*
[2025-02-08 09:28] LABS: Blood Urea Nitrogen 13 mg/dl (9-20); Calcium 9.2 mg/dl (8.4-10.2); Carbon Dioxide 25 mmol/L (22-30); Chloride 101 mmol/L (98-107); Estimated Creatinine Clearance 104 ml/min; Glucose 89 mg/dl (70-99); Potassium 4.5 mmol/L (3.5-5.1); Sodium 133 mmol/L (135-145); eGFR > 60.00
[2025-02-08 11:00] VITALS: BP 110/77
--- NOTE | 2025-02-08 12:16 | W.PN.HOSP.TC ---
Addendum entered and electronically signed by Dimitri Slater MD 02/08/25 12:25:
Time of discharge 38 minutes
Original Note:
Today's Communication/Plan
-
Monitor vitals
See plan
If able to void, then discharged home today
Continue Eliquis
Assessment / Plan
Assessment / Plan
Gen: NAD, AAOx3.
Eyes: EOMI, PERRLA, no scleral icterus.
Neck: supple.
CV: remains RRR, +S1/S2, no m/r/g.
Resp: CTAB anteriorly, no rales, wheezes, or rhonchi.
Abd: remains +BS, soft, NT, ND
Skin: No rashes.
Neuro: CN 2-12 intact, non-focal.
Psych: Normal mood and affect.
CTA chest: Positive for pulmonary embolism with mild clot burden. Proximal subsegmental pulmonary embolism in the posterior basal segment of the left lower lobe. Proximal subsegmental pulmonary embolism in the lateral basal segment of the left lower
lobe. Subsegmental pulmonary embolism in the posterior medial basal segment of the right lower lobe. Pulmonary artery branching order level of the most proximal pulmonary embolism: Left lower lobe proximal subsegmental pulmonary artery division. The
RV to LV ratio 0.94.
B/L LE U/S: No evidence of DVT of the RLE. Probable chronic DVT of the left leg from the knee to and including the calf. Improved from previous exam.
Acute B/L PEs:
-suspect provoked by recent TURP. However given another thromboembolism episode, advised patient to see hematology outpatient. He has seen Dr. Riggs in the past
-imaging above
Now on MATTHIEU [facility] on [place]
-Pain syndrome suggests inflammation +/- infarct in the LLL.
-Pain control / supportive care.
-currently not hypoxemic or hypotensive
-pulm following, discussed with pulm
-Trop NEG, RV/LV ratio 0.94, no indication for echo (cancelled)
BPH:
-with Urinary Retention s/p TURP on 01/28/25
Status post Corey removal 02/08, voiding trial.
-cont Flomax
-Uro following, discussed with Dr. Molina
-Corey removal/repeat TOV on 02/08 (will have this done inpt)
Essential HTN:
-cont ACEi
Patient's updated at bedside extensively.
FULL/Heparin
Anticipated Discharge: Today
Subjective/Interval History
-
Date of Service: February 08, 2025
Denies pain
Objective Data
-
Labs:
Laboratory Results
02/08/25
07:20
WBC 6.9
Hgb 14.0
Hct 42.4
Plt Count 282
Sodium 133 L
Potassium 4.5
Chloride 101
Carbon Dioxide 25
BUN 13
Creatinine 0.9
Glucose 89
Calcium 9.2
Vital Signs:
Vital Signs
Temp Pulse Resp BP Pulse Ox
98.1 F 67 18 124/83 97
02/08/25 07:00 02/08/25 07:00 02/08/25 07:00 02/08/25 07:00 02/08/25 07:00
I&O
02/07/25 02/08/25 02/09/25
06:59 06:59 06:59
Intake Total 1621 / 1621 4080 / 4080
Output Total 2650 / 2650 3800 / 3800
Balance -1029 / -1029 280 / 280
--- NOTE | 2025-02-08 12:25 | W.DCSUMMARY ---
Discharge Summary
Discharge Data
Date of Admission: 02/05/25
Date of Discharge: 02/08/25
-
Pending Results: No
Hospital Course
54-year-old male with past medical history of BPH, essential hypertension, DVT came to the hospital with shortness of breath known to have bilateral acute pulmonary embolism. Patient was initially started on IV heparin which was later transitioned
to Eliquis prior to discharge. Patient was also seen by pulmonary throughout hospitalization. Patient had a negative troponin and proBNP so no echocardiogram was done. Patient did have urinary retention and had a Corey catheter which was removed
prior to discharge. Patient was able to void on his own prior to discharge. Given this the patient's second episode of thromboembolism, patient was recommended to follow-up closely with hematology outpatient. Once his symptoms continue to
improve, he was then discharged with instructions to follow-up with all his physicians outpatient.
Discharge Plan
-
Patient Disposition: Home (Routine Discharge)
Discharge Diagnosis/Procedures: Acute bilateral pulmonary embolism
BPH
Recent TURP
Urinary retention
Condition: Fair
Diet: As tolerated
Activity: As tolerated
Driving Restrictions: As prior to admission
Bathing Restrictions: None
Referrals:
Sameer Paredes MD [Active, Pulmonary Medicine] - in two to four weeks
Referral Note: full PFT on day of office visit
Shakila Riggs DO [Active, Hematology / Oncology]
Lilly Molina MD [Active, Urology] - in two to three weeks
Aureliano Pino MD [Family Provider, Family Practice] - in less than 1 week
Prescriptions:
New
Eliquis 5 mg tablet
5 mg PO BID Qty: 60 0RF
Rx Instructions:
Take 10 mg twice daily through 02/14 morning dose
Starting 02/14 evening dose decrease to 5 mg twice daily
benzonatate 100 mg Capsule
200 mg PO TID 5 Days Qty: 30 0RF
Continued
lisinopril 20 mg tablet
20 mg PO HS
pseudoephedrine HCl 60 mg Tablet
60 mg PO HSPRN PRN (Reason: allergies) Qty: 0
fexofenadine 60 mg Tablet
60 mg PO BIDPRN PRN (Reason: allergies)
ketotifen fumarate [Allergy Eye (ketotifen)] 0.025 % (0.035 %) Drops
1 drp BOTH EYES BIDPRN PRN (Reason: allergies)
psyllium Packet
1 packet PO DAILY
tamsulosin 0.4 mg Capsule
0.4 mg PO DAILY
Dramamine 25 mg Tablet,Chewable
25 mg PO Q8HPRN PRN (Reason: vergo)
Held
amlodipine 5 mg tablet
5 mg PO HS
Hold Instructions: Restart when blood pressure is greater than 140/90
Discontinued
sulfamethoxazole-trimethoprim [Bactrim DS] 800-160 mg Tablet
1 tab PO BID
Rx Instructions:
for 7 days starting 02/02/25
ibuprofen [Advil] 200 mg Tablet
200 mg PO Q6HPRN PRN (Reason: mild pain)
Discharge Orders:
Discharge Patient (As Directed); Ordered 02/08/25
Ordered By: Dimitri Slater
Discharge Date and Time
Discharge Date/Time: 02/08/25 16:18
Print Language: FAROESE
--- NOTE | 2025-02-08 12:39 | CM ---
Chart reviewed. Patient will discharge home today
CM consulted for Eliquis coverage/pricing. CM called patient's [facility]. Per pharmacist, patient has a $30 co pay for 60 quantity
Update to hospitalist
Plan: Home, no needs
--- NOTE | 2025-02-08 13:20 | W.PN.UPDATE ---
Update Note
Progress Note Update
Patient voiding without difficulty x2 per his nurse
Post void bladder scan 75cc
Stable for discharge from urology standpoint
Follow up in about 3 weeks - office will call to schedule
== END 2025-02-08 16:18 | disposition home or self-care (01) | DRG 176 ==
LOC: 4 WEST ACU 22:46
PROVIDERS: Internal Medicine; Nurse Practitioner; ADMITTING PHYSICIAN Hospitalist; ATTENDING PHYSICIAN Internal Medicine; CONSULT PHYSICIAN Internal Medicine Critical Care Medicine; CONSULT PHYSICIAN Student in an Organized Health Care Education/Training Program; EMERGENCY PHYSICIAN Emergency Medicine; FAMILY PHYSICIAN Family Medicine
DX: I26.93 Single subsegmental thrombotic pulmonary embolism without acute cor pulmonale (principal); I82.532 Chronic embolism and thrombosis of left popliteal vein; I82.552 Chronic embolism and thrombosis of left peroneal vein; I82.542 Chronic embolism and thrombosis of left tibial vein; G89.29 Other chronic pain; I10 Essential (primary) hypertension; K21.9 Gastro-esophageal reflux disease without esophagitis; J45.909 Unspecified asthma, uncomplicated; G47.33 Obstructive sleep apnea (adult) (pediatric); N40.1 Benign prostatic hyperplasia with lower urinary tract symptoms; R33.8 Other retention of urine; R31.9 Hematuria, unspecified; Z82.49 Family history of ischemic heart disease and other diseases of the circulatory system; Z86.711 Personal history of pulmonary embolism; Z90.79 Acquired absence of other genital organ(s); Z87.891 Personal history of nicotine dependence; Z88.0 Allergy status to penicillin; Z91.018 Allergy to other foods; Z80.1 Family history of malignant neoplasm of trachea, bronchus and lung
CPT/HCPCS: 71275; 80048; 80053; 83605; 83880; 84484; 85025; 85027; 85610; 85730; 93005; 93970; 96361; 96365; 96366; 96375; 99285; Q9967